=== PATIENT | female | born 1935 | race Caucasian/White ===

== ENCOUNTER → 2017-11-16 | Outpatient (CLI) | payer OTHER ==
[2017-11-16 10:31] LABS: Basophils # (auto) 0 uL; Basophils % (auto) 0.5 % (0.0-2.0); Eosinophils # (auto) 0.3 uL; Eosinophils % (auto) 4.1 % (0.0-7.0); Hematocrit 36.4 % (36.0-46.0); Hemoglobin 11.9 g/dL (12.2-16.2); Lymphocytes # (auto) 1.4 uL; Lymphocytes % (auto) 21.2 % (10.0-50.0); Mean Corpuscular Hemoglobin 29.6 pg (28.0-32.0); Mean Corpuscular Hgb Conc. 32.8 g/dL (32.0-36.0); Mean Corpuscular Volume 90.2 fL (80.0-100.0); Monocytes # (auto) 0.5 uL; Monocytes % (auto) 8.3 % (0.0-12.0); Neutrophils # (auto) 4.3 uL; Neutrophils % (auto) 65.9 % (37.0-80.0); Platelet Count (auto) 217 10^3/uL (140-450); Red Blood Cells 4.03 10^6/uL (4.0-5.20); Red Cell Distribution Width 15.9 % (11.8-14.3); White Blood Cell 6.5 10^3/uL (4.4-10.8)
[2017-11-16 10:53] LABS: Albumin 3.4 g/dL (3.4-5.0); BUN/Creatinine Ratio 13.7; Bilirubin, Total 0.7 mg/dL (0.2-1.0); Calcium 8.7 mg/dL (8.5-10.1); Potassium 4.1 mmol/L (3.5-5.1)
== END | disposition home or self-care (01) ==
LOC: LAB 10:10
PROVIDERS: ATTEND Internal Medicine
DX: I10 Essential (primary) hypertension (principal); E78.2 Mixed hyperlipidemia
CPT/HCPCS: 36415; 80053; 80061; 84443; 85025

== ENCOUNTER 2018-04-24 14:44 | Emergency (ER) | payer OTHER ==
[~2018-04-24] VITALS: Ht 165.1 cm; Wt 82.1 kg
[2018-04-24 15:20] VITALS: BP 160/84
== END 2018-04-24 18:58 | disposition home or self-care (01) ==
LOC: ER 14:44
DX: S30.0XXA Contusion of lower back and pelvis, initial encounter (principal); S40.012A Contusion of left shoulder, initial encounter; I48.91 Unspecified atrial fibrillation; M19.90 Unspecified osteoarthritis, unspecified site; E78.5 Hyperlipidemia, unspecified; I10 Essential (primary) hypertension; E07.9 Disorder of thyroid, unspecified; Z86.73 Personal history of transient ischemic attack (TIA), and cerebral infarction without residual deficits; W18.39XA Other fall on same level, initial encounter; Y93.89 Activity, other specified; Y99.8 Other external cause status; Y92.89 Other specified places as the place of occurrence of the external cause
CPT/HCPCS: 72131; 73200; 93005

== ENCOUNTER → 2018-05-16 | Outpatient (CLI) | payer OTHER ==
[2018-05-16 11:34] LABS: Basophils # (auto) 0 uL; Basophils % (auto) 0.5 % (0.0-2.0); Eosinophils # (auto) 0.3 uL; Eosinophils % (auto) 4.5 % (0.0-7.0); Hematocrit 41.5 % (36.0-46.0); Lymphocytes # (auto) 1.5 uL; Lymphocytes % (auto) 22.5 % (10.0-50.0); Mean Corpuscular Hgb Conc. 33.7 g/dL (32.0-36.0); Mean Corpuscular Volume 89.1 fL (80.0-100.0); Monocytes # (auto) 0.5 uL; Monocytes % (auto) 7.8 % (0.0-12.0); Neutrophils # (auto) 4.2 uL; Neutrophils % (auto) 64.7 % (37.0-80.0); Platelet Count (auto) 209 10^3/uL (140-450); Red Blood Cells 4.66 10^6/uL (4.0-5.20); Red Cell Distribution Width 14.9 % (11.8-14.3); White Blood Cell 6.5 10^3/uL (4.4-10.8)
== END | disposition home or self-care (01) ==
LOC: LAB 11:10
PROVIDERS: ATTEND Internal Medicine
DX: I10 Essential (primary) hypertension (principal); E03.9 Hypothyroidism, unspecified
CPT/HCPCS: 36415; 84443; 85025

== ENCOUNTER → 2018-06-29 | Outpatient (CLI) | payer OTHER | END | disposition home or self-care (01) | LOC: XYW 11:10 | PROVIDERS: ATTEND Internal Medicine | DX: Z01.818 Encounter for other preprocedural examination (principal); I08.8 Other rheumatic multiple valve diseases; I10 Essential (primary) hypertension | CPT/HCPCS: 93306 ==

== ENCOUNTER → 2018-11-22 | Outpatient (CLI) | payer OTHER ==
[2018-11-22 11:34] LABS: BUN/Creatinine Ratio 16.7; Calcium 8.7 mg/dL (8.5-10.1); Potassium 3.7 mmol/L (3.5-5.1)
== END | disposition home or self-care (01) ==
LOC: LAB 11:03
PROVIDERS: ATTEND Internal Medicine
DX: E03.9 Hypothyroidism, unspecified (principal); E78.5 Hyperlipidemia, unspecified
CPT/HCPCS: 36415; 80048; 84443

== ENCOUNTER → 2019-01-18 | Outpatient (CLI) | payer OTHER | END | disposition home or self-care (01) | LOC: XYW 11:16 | PROVIDERS: ATTEND Internal Medicine Cardiovascular Disease | DX: I08.1 Rheumatic disorders of both mitral and tricuspid valves (principal); I27.21 Secondary pulmonary arterial hypertension | CPT/HCPCS: 93306 ==

== ENCOUNTER → 2019-02-15 | Outpatient (CLI) | payer OTHER | END | disposition home or self-care (01) | LOC: LAB 14:06 | PROVIDERS: ATTEND Internal Medicine | DX: E03.9 Hypothyroidism, unspecified (principal); I10 Essential (primary) hypertension | CPT/HCPCS: 36415; 83036 ==

== ENCOUNTER → 2019-04-26 | Outpatient (CLI) | payer OTHER ==
[~2019-04-26] VITALS: Ht 167.6 cm; Wt 80.3 kg
[~2019-04-26] MED LIST: ADENOSINE 67 MG in GIVE UN-DILUTED 0 ML IV STA; METOPROLOL TARTRATE 1MG/1ML-5ML VIAL IV ONE
--- NOTE | 2019-04-26 09:51 | NUR ---
Update Dr. Locke notified of pt's increased HR. 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 Pt is asymptomatic, placed on O2 nc at 2L/min. Denies taking her morning medications including her beta ethan. Stress test completed as requested per Dr. Locke, pt tolerated testing well. V.O. received for beta ethan IV and to monitor pt until HR is WNL. See eMar orders. Pt informed of POC. Will continue with orders and to monitor closely.
[2019-04-26 11:45] VITALS: BP 133/83
--- NOTE | 2019-04-26 11:45 | NUR ---
Update Pt. discharged home in stable condition. VS rechecked, see VS intervention. Pt denied any symptoms. ED precautions given for CP, SOB, dizziness, or any other symptom. Ambulated out of the ED with walker in no distress.
== END | disposition home or self-care (01) ==
LOC: XY 08:18
PROVIDERS: ATTEND Internal Medicine
DX: Z01.818 Encounter for other preprocedural examination (principal); I48.91 Unspecified atrial fibrillation
CPT/HCPCS: 78452; 93017; A9500; J0153

== ENCOUNTER → 2019-09-28 | Outpatient (CLI) | payer OTHER | END | disposition home or self-care (01) | LOC: LAB 10:37 | PROVIDERS: ATTEND Internal Medicine | DX: E03.9 Hypothyroidism, unspecified (principal) | CPT/HCPCS: 36415; 84443 ==

== ENCOUNTER → 2020-02-14 | Outpatient (CLI) | payer OTHER ==
[2020-02-14 11:51] LABS: Basophils # (auto) 0 10 ^3/uL (0-0.2); Basophils % (auto) 0.4 % (0.0-2.0); Eosinophils # (auto) 0.2 10 ^3/uL (0-0.8); Eosinophils % (auto) 2.4 % (0.0-7.0); Hematocrit 41.9 % (36.0-46.0); Hemoglobin 13.9 g/dL (12.2-16.2); Lymphocytes # (auto) 1.4 10 ^3/uL (0.4-5.4); Mean Corpuscular Hemoglobin 28.9 pg (28.0-32.0); Mean Corpuscular Hgb Conc. 33.1 g/dL (32.0-36.0); Mean Corpuscular Volume 87.4 fL (80.0-100.0); Monocytes # (auto) 0.7 10 ^3/uL (0-1.3); Monocytes % (auto) 8.6 % (0.0-12.0); Neutrophils # (auto) 5.5 10 ^3/uL (1.6-8.6); Neutrophils % (auto) 70.6 % (37.0-80.0); Nucleated Red Blood Cells % 0.1 %; Platelet Count (auto) 253 10^3/uL (140-450); Red Cell Distribution Width 15.9 % (11.8-14.3); White Blood Cell 7.8 10^3/uL (4.4-10.8)
[2020-02-14 12:20] LABS: Potassium 3.4 mmol/L (3.5-5.1)
[2020-02-14 12:45] LABS: Albumin 3.7 g/dL (3.4-5.0); BUN/Creatinine Ratio 21.8; Bilirubin, Total 0.7 mg/dL (0.2-1.0); Calcium 9.5 mg/dL (8.5-10.1); Total Protein 7.6 g/dL (6.4-8.2)
== END | disposition home or self-care (01) ==
LOC: LAB 11:19
PROVIDERS: ATTEND Internal Medicine
DX: Z00.00 Encounter for general adult medical examination without abnormal findings (principal); I10 Essential (primary) hypertension; E03.9 Hypothyroidism, unspecified
CPT/HCPCS: 36415; 80053; 80061; 84443; 85025

== ENCOUNTER → 2020-05-10 | Outpatient (CLI) | payer OTHER ==
[2020-05-10 11:48] LABS: BUN/Creatinine Ratio 23.3; Calcium 9.3 mg/dL (8.5-10.1); Potassium 3.6 mmol/L (3.5-5.1)
== END | disposition home or self-care (01) ==
LOC: LAB 11:14
PROVIDERS: ATTEND Internal Medicine
DX: E03.9 Hypothyroidism, unspecified (principal)
CPT/HCPCS: 36415; 80048; 84443

== ENCOUNTER → 2020-06-13 | Outpatient (CLI) | payer OTHER ==
[2020-06-13 10:27] LABS: Basophils # (auto) 0 10 ^3/uL (0-0.2); Basophils % (auto) 0.6 % (0.0-2.0); Eosinophils # (auto) 0.3 10 ^3/uL (0-0.8); Eosinophils % (auto) 3.7 % (0.0-7.0); Hematocrit 40.1 % (36.0-46.0); Hemoglobin 13.5 g/dL (12.2-16.2); Lymphocytes # (auto) 1.3 10 ^3/uL (0.4-5.4); Lymphocytes % (auto) 18.6 % (10.0-50.0); Mean Corpuscular Hgb Conc. 33.6 g/dL (32.0-36.0); Mean Corpuscular Volume 89.2 fL (80.0-100.0); Monocytes # (auto) 0.6 10 ^3/uL (0-1.3); Monocytes % (auto) 8.4 % (0.0-12.0); Neutrophils # (auto) 4.8 10 ^3/uL (1.6-8.6); Neutrophils % (auto) 68.7 % (37.0-80.0); Platelet Count (auto) 226 10^3/uL (140-450); Red Blood Cells 4.49 10^6/uL (4.0-5.20); Red Cell Distribution Width 14.9 % (11.8-14.3); White Blood Cell 6.9 10^3/uL (4.4-10.8)
[2020-06-13 10:40] LABS: INR 1.33 (0.9-1.15)
[2020-06-13 10:59] LABS: Urine Bacteria FEW /hpf (None Seen); Urine Blood 1+ /uL (Negative); Urine Hyaline Cast FEW /lpf (0 - 2); Urine Mucus FEW (None Seen); Urine Specific Gravity 1.018 (1.001-1.035); Urine WBC 4 /hpf (0 - 5)
[2020-06-13 11:37] LABS: Albumin 3.6 g/dL (3.4-5.0); Calcium 9.3 mg/dL (8.5-10.1); Potassium 3.5 mmol/L (3.5-5.1)
[2020-06-13 11:43] LABS: BUN/Creatinine Ratio 18.5; Bilirubin, Total 0.8 mg/dL (0.2-1.0); Total Protein 7.2 g/dL (6.4-8.2)
== END | disposition home or self-care (01) ==
LOC: LAB 10:07
PROVIDERS: ATTEND Internal Medicine
DX: Z01.818 Encounter for other preprocedural examination (principal); Z01.812 Encounter for preprocedural laboratory examination
CPT/HCPCS: 36415; 80053; 81001; 84443; 85025; 85610

== ENCOUNTER → 2020-06-28 | Outpatient (CLI) | payer OTHER ==
[2020-06-28 11:55] LABS: Basophils # (auto) 0 10 ^3/uL (0-0.2); Basophils % (auto) 0.5 % (0.0-2.0); Eosinophils # (auto) 0.3 10 ^3/uL (0-0.8); Eosinophils % (auto) 3.5 % (0.0-7.0); Hematocrit 39.4 % (36.0-46.0); Hemoglobin 13.3 g/dL (12.2-16.2); Lymphocytes # (auto) 1.2 10 ^3/uL (0.4-5.4); Lymphocytes % (auto) 16.2 % (10.0-50.0); Mean Corpuscular Hemoglobin 30.1 pg (28.0-32.0); Mean Corpuscular Hgb Conc. 33.7 g/dL (32.0-36.0); Mean Corpuscular Volume 89.4 fL (80.0-100.0); Monocytes # (auto) 0.6 10 ^3/uL (0-1.3); Monocytes % (auto) 7.8 % (0.0-12.0); Neutrophils # (auto) 5.3 10 ^3/uL (1.6-8.6); Platelet Count (auto) 206 10^3/uL (140-450); Red Blood Cells 4.41 10^6/uL (4.0-5.20); White Blood Cell 7.3 10^3/uL (4.4-10.8)
[2020-06-28 12:10] LABS: Urine Blood 1+ /uL (Negative); Urine Specific Gravity 1.021 (1.001-1.035)
[2020-06-28 12:12] LABS: INR 1.24 (0.9-1.15); Partial Thromboplastin Time 33.2 sec (23.0-31.2)
[2020-06-28 12:19] LABS: Albumin 3.6 g/dL (3.4-5.0); Calcium 9.2 mg/dL (8.5-10.1); Potassium 3.6 mmol/L (3.5-5.1)
[2020-06-28 12:24] LABS: BUN/Creatinine Ratio 17.1; Bilirubin, Total 0.9 mg/dL (0.2-1.0); Total Protein 6.9 g/dL (6.4-8.2)
== END | disposition home or self-care (01) ==
LOC: LAB 11:38
PROVIDERS: ATTEND Specialist
DX: H25.12 Age-related nuclear cataract, left eye (principal); D68.318 Other hemorrhagic disorder due to intrinsic circulating anticoagulants, antibodies, or inhibitors; Z01.82 Encounter for allergy testing; Z79.01 Long term (current) use of anticoagulants
CPT/HCPCS: 36415; 80053; 81003; 85025; 85610; 85730

== ENCOUNTER → 2020-07-22 | Outpatient (CLI) | payer OTHER ==
[2020-07-22 12:12] LABS: Basophils # (auto) 0.1 10 ^3/uL (0-0.2); Basophils % (auto) 0.5 % (0.0-2.0); Eosinophils # (auto) 0.2 10 ^3/uL (0-0.8); Eosinophils % (auto) 2.3 % (0.0-7.0); Hematocrit 40.5 % (36.0-46.0); Hemoglobin 13.8 g/dL (12.2-16.2); Lymphocytes # (auto) 1.4 10 ^3/uL (0.4-5.4); Lymphocytes % (auto) 14.1 % (10.0-50.0); Mean Corpuscular Hemoglobin 30.5 pg (28.0-32.0); Mean Corpuscular Hgb Conc. 33.9 g/dL (32.0-36.0); Mean Corpuscular Volume 89.7 fL (80.0-100.0); Monocytes # (auto) 0.8 10 ^3/uL (0-1.3); Neutrophils # (auto) 7.6 10 ^3/uL (1.6-8.6); Neutrophils % (auto) 75.1 % (37.0-80.0); Nucleated Red Blood Cells % 0.1 %; Platelet Count (auto) 233 10^3/uL (140-450); Red Blood Cells 4.51 10^6/uL (4.0-5.20); Red Cell Distribution Width 14.9 % (11.8-14.3); White Blood Cell 10.2 10^3/uL (4.4-10.8)
[2020-07-22 12:48] LABS: Potassium 3.7 mmol/L (3.5-5.1)
[2020-07-22 12:50] LABS: Urine Blood Negative /uL (Negative); Urine Specific Gravity 1.024 (1.001-1.035)
[2020-07-22 12:52] LABS: INR 1.06 (0.9-1.15); Partial Thromboplastin Time 27.9 sec (23.0-31.2)
[2020-07-22 13:06] LABS: Albumin 3.5 g/dL (3.4-5.0); BUN/Creatinine Ratio 15.2; Bilirubin, Total 0.9 mg/dL (0.2-1.0); Calcium 9.2 mg/dL (8.5-10.1); Total Protein 7.2 g/dL (6.4-8.2)
== END | disposition home or self-care (01) ==
LOC: LAB 12:00
PROVIDERS: ATTEND Specialist
DX: Z01.812 Encounter for preprocedural laboratory examination (principal); D68.9 Coagulation defect, unspecified; H25.11 Age-related nuclear cataract, right eye; Z79.01 Long term (current) use of anticoagulants
CPT/HCPCS: 36415; 80053; 81003; 85025; 85610; 85730

== ENCOUNTER → 2020-08-09 | Outpatient (CLI) | payer OTHER ==
[2020-08-09 12:05] LABS: Potassium 3.4 mmol/L (3.5-5.1)
== END | disposition home or self-care (01) ==
LOC: LAB 10:47
PROVIDERS: ATTEND Internal Medicine
DX: I10 Essential (primary) hypertension (principal)
CPT/HCPCS: 36415; 80048

== ENCOUNTER → 2020-09-10 | Outpatient (CLI) | payer OTHER ==
[2020-09-10 15:28] LABS: BUN/Creatinine Ratio 16.7; Calcium 9.1 mg/dL (8.5-10.1); Potassium 3.5 mmol/L (3.5-5.1)
== END | disposition home or self-care (01) ==
LOC: LAB 14:45
PROVIDERS: ATTEND Internal Medicine
DX: I10 Essential (primary) hypertension (principal)
CPT/HCPCS: 36415; 80048

== ENCOUNTER → 2021-09-25 | Outpatient (CLI) | payer OTHER ==
[2021-09-25 12:08] LABS: Basophils # (auto) 0.1 10 ^3/uL (0-0.2); Basophils % (auto) 0.7 % (0.0-2.0); Eosinophils # (auto) 0.3 10 ^3/uL (0-0.8); Eosinophils % (auto) 4.4 % (0.0-7.0); Hematocrit 39.3 % (36.0-46.0); Hemoglobin 13.3 g/dL (12.2-16.2); Lymphocytes # (auto) 1.3 10 ^3/uL (0.4-5.4); Lymphocytes % (auto) 17.7 % (10.0-50.0); Mean Corpuscular Hemoglobin 30.3 pg (28.0-32.0); Mean Corpuscular Hgb Conc. 33.8 g/dL (32.0-36.0); Mean Corpuscular Volume 89.7 fL (80.0-100.0); Monocytes # (auto) 0.6 10 ^3/uL (0-1.3); Neutrophils # (auto) 5.1 10 ^3/uL (1.6-8.6); Neutrophils % (auto) 69.2 % (37.0-80.0); Nucleated Red Blood Cells % 0.1 %; Red Blood Cells 4.38 10^6/uL (4.0-5.20); Red Cell Distribution Width 13.9 % (11.8-14.3); White Blood Cell 7.4 10^3/uL (4.4-10.8)
[2021-09-25 12:42] LABS: Albumin 3.7 g/dL (3.4-5.0); Calcium 9.8 mg/dL (8.5-10.1); Potassium 3.7 mmol/L (3.5-5.1)
[2021-09-25 12:48] LABS: BUN/Creatinine Ratio 15.2; Bilirubin, Total 0.7 mg/dL (0.2-1.0); Total Protein 7.3 g/dL (6.4-8.2)
== END | disposition home or self-care (01) ==
LOC: LAB 09:36
PROVIDERS: ATTEND Internal Medicine
DX: C50.912 Malignant neoplasm of unspecified site of left female breast (principal); I10 Essential (primary) hypertension; E78.5 Hyperlipidemia, unspecified; I48.91 Unspecified atrial fibrillation
CPT/HCPCS: 36415; 80053; 80061; 83615; 85025; 86300

== ENCOUNTER → 2021-09-30 | Outpatient (CLI) | payer OTHER | END | disposition home or self-care (01) | LOC: XYW 09:59 | PROVIDERS: ATTEND Internal Medicine | DX: I08.3 Combined rheumatic disorders of mitral, aortic and tricuspid valves (principal) | CPT/HCPCS: 93306 ==

== ENCOUNTER → 2021-11-05 | Outpatient (CLI) | payer OTHER | END | disposition home or self-care (01) | LOC: XYW 08:33 | PROVIDERS: ATTEND Internal Medicine | DX: C50.912 Malignant neoplasm of unspecified site of left female breast (principal) | CPT/HCPCS: 78306; A9503 ==

== ENCOUNTER → 2022-03-25 | Outpatient (CLI) | payer OTHER ==
[2022-03-25 13:08] LABS: Basophils # (auto) 0.1 10 ^3/uL (0-0.2); Basophils % (auto) 0.6 % (0.0-2.0); Eosinophils # (auto) 0.4 10 ^3/uL (0-0.8); Eosinophils % (auto) 4.2 % (0.0-7.0); Hematocrit 39.3 % (36.0-46.0); Lymphocytes # (auto) 1.5 10 ^3/uL (0.4-5.4); Mean Corpuscular Hemoglobin 29.7 pg (28.0-32.0); Mean Corpuscular Hgb Conc. 33.2 g/dL (32.0-36.0); Mean Corpuscular Volume 89.5 fL (80.0-100.0); Monocytes # (auto) 0.8 10 ^3/uL (0-1.3); Monocytes % (auto) 8.7 % (0.0-12.0); Neutrophils # (auto) 6.4 10 ^3/uL (1.6-8.6); Neutrophils % (auto) 70.5 % (37.0-80.0); Red Blood Cells 4.38 10^6/uL (4.0-5.20); Red Cell Distribution Width 13.9 % (11.8-14.3); White Blood Cell 9.1 10^3/uL (4.4-10.8)
[2022-03-25 13:25] LABS: Albumin 3.6 g/dL (3.4-5.0); BUN/Creatinine Ratio 17.1; Potassium 3.5 mmol/L (3.5-5.1)
[2022-03-25 13:28] LABS: Bilirubin, Total 0.7 mg/dL (0.2-1.0); Total Protein 7.3 g/dL (6.4-8.2)
[2022-03-25 13:32] LABS: Urine Bacteria MANY /hpf (None Seen); Urine Blood 2+ /uL (Negative); Urine Mucus FEW (None Seen); Urine WBC 133 /hpf (0 - 5)
[2022-03-25 13:50] LABS: Thyroid Stimulating Hormone 2.3 uIU/mL (0.358-3.74)
== END | disposition home or self-care (01) ==
LOC: LAB 12:39
PROVIDERS: ATTEND Internal Medicine
DX: C50.912 Malignant neoplasm of unspecified site of left female breast (principal); D68.69 Other thrombophilia; I27.20 Pulmonary hypertension, unspecified
CPT/HCPCS: 36415; 80053; 81001; 83615; 84443; 85025; 86300

== ENCOUNTER → 2022-11-10 | Outpatient (CLI) | payer OTHER ==
[2022-11-10 13:23] LABS: Basophils # (auto) 0.1 10 ^3/uL (0-0.2); Basophils % (auto) 0.6 % (0.0-2.0); Eosinophils # (auto) 0.2 10 ^3/uL (0-0.8); Eosinophils % (auto) 1.9 % (0.0-7.0); Hematocrit 38.8 % (36.0-46.0); Hemoglobin 13.3 g/dL (12.2-16.2); Lymphocytes # (auto) 1.8 10 ^3/uL (0.4-5.4); Lymphocytes % (auto) 16.6 % (10.0-50.0); Mean Corpuscular Hemoglobin 30.6 pg (28.0-32.0); Mean Corpuscular Hgb Conc. 34.2 g/dL (32.0-36.0); Mean Corpuscular Volume 89.4 fL (80.0-100.0); Monocytes % (auto) 9.4 % (0.0-12.0); Neutrophils # (auto) 7.6 10 ^3/uL (1.6-8.6); Neutrophils % (auto) 71.5 % (37.0-80.0); Nucleated Red Blood Cells % 0.1 %; Red Blood Cells 4.35 10^6/uL (4.0-5.20); Red Cell Distribution Width 14.7 % (11.8-14.3); White Blood Cell 10.6 10^3/uL (4.4-10.8)
[2022-11-10 13:56] LABS: Albumin 3.8 g/dL (3.4-5.0); Calcium 9.6 mg/dL (8.5-10.1)
[2022-11-10 13:57] LABS: Urine Bacteria NONE SEEN /hpf (None Seen); Urine Blood 1+ /uL (Negative); Urine Mucus FEW (None Seen); Urine Specific Gravity 1.025 (1.001-1.035); Urine WBC 115 /hpf (0 - 5)
[2022-11-10 14:01] LABS: BUN/Creatinine Ratio 15.5; Bilirubin, Total 0.9 mg/dL (0.2-1.0); Total Protein 7.4 g/dL (6.4-8.2)
== END | disposition home or self-care (01) ==
LOC: LAB 13:01
PROVIDERS: ATTEND Internal Medicine
DX: Z00.00 Encounter for general adult medical examination without abnormal findings (principal); C50.912 Malignant neoplasm of unspecified site of left female breast; I10 Essential (primary) hypertension; I48.91 Unspecified atrial fibrillation
CPT/HCPCS: 36415; 80053; 80061; 81001; 84443; 85025

== ENCOUNTER 2022-12-30 09:43 | Inpatient (IN) | payer OTHER ==
[2022-12-25 12:07] LABS: Basophils # (auto) 0 10 ^3/uL (0-0.2); Basophils % (auto) 0.5 % (0.0-2.0); Eosinophils # (auto) 0.2 10 ^3/uL (0-0.8); Eosinophils % (auto) 1.9 % (0.0-7.0); Hematocrit 39.7 % (36.0-46.0); Hemoglobin 13.3 g/dL (12.2-16.2); Lymphocytes # (auto) 1.6 10 ^3/uL (0.4-5.4); Lymphocytes % (auto) 15.9 % (10.0-50.0); Mean Corpuscular Hemoglobin 30.1 pg (28.0-32.0); Mean Corpuscular Hgb Conc. 33.4 g/dL (32.0-36.0); Monocytes # (auto) 0.8 10 ^3/uL (0-1.3); Neutrophils # (auto) 7.3 10 ^3/uL (1.6-8.6); Neutrophils % (auto) 73.7 % (37.0-80.0); Nucleated Red Blood Cells % 0.1 %; Red Blood Cells 4.41 10^6/uL (4.0-5.20); Red Cell Distribution Width 14.9 % (11.8-14.3)
[2022-12-25 12:25] LABS: Albumin 3.6 g/dL (3.4-5.0); Calcium 9.9 mg/dL (8.5-10.1); Potassium 4.2 mmol/L (3.5-5.1)
[2022-12-25 12:30] LABS: Bilirubin, Total 0.8 mg/dL (0.2-1.0); Total Protein 7.3 g/dL (6.4-8.2)
[2022-12-25 12:34] LABS: INR 1.08 (0.9-1.15); Partial Thromboplastin Time 30.6 sec (24.6-33.4)
[2022-12-25 12:51] LABS: Urine Bacteria FEW /hpf (None Seen); Urine Blood Negative /uL (Negative); Urine Mucus FEW (None Seen); Urine Specific Gravity 1.033 (1.001-1.035); Urine WBC 7 /hpf (0 - 5)
[~2022-12-30] VITALS: Ht 162.6 cm; Wt 90.4 kg
[~2022-12-30 09:43] MED LIST changes: -ADENOSINE 67 MG in GIVE UN-DILUTED 0 ML IV STA; +ANAS1TAB7 PO; +APIX2.5T PO; +ATOR10TA PO; +LEVO88TA4 PO; +METO25TA5 PO; -METOPROLOL TARTRATE 1MG/1ML-5ML VIAL IV ONE; +TRAZ100T3 PO; +TRIA75TA55 PO
[2022-12-30] MEDS ORDERED: ceFAZolin 1GM/50ML 100 ML IV ONE (12:41)
[2022-12-30] MEDS ORDERED: LIDOCAINE W/ EPINEPHRINE 1% 20ML VIAL ONE (12:41)
[2022-12-30] MEDS ORDERED: BUPIVACAINE 0.25% INJ 50ML VIAL ONE (12:41)
[2022-12-30] MEDS ORDERED: METHYLENE BLUE 0.5% 5MG/ML 10ml AMP IV ONE (12:41)
[2022-12-30] MEDS ORDERED: fentaNYL CITRATE 100 MCG/2 ML VL ONE (13:23)
[2022-12-30] MEDS ORDERED: MEPERIDINE HCL (25 MG/ML) 1ML VIAL ONE (13:23)
[2022-12-30] MEDS ORDERED: MIDAZOLAM HCL 2MG/2ML 2ml VIAL (1mg/ml) ONE (13:23)
[2022-12-30] MEDS ORDERED: MORPHINE SULFATE 4 MG/ML SYR/VIAL IV PRN (13:45)
[2022-12-30] MEDS ORDERED: ONDANSETRON HCL 4 MG/2 ML VIAL IV PRN ×2 (13:45→17:15)
[2022-12-30] MEDS ORDERED: ePHEDrine SULFATE 50 MG/ML AMP IV PRN (13:45)
[2022-12-30] MEDS ORDERED: LABETALOL HCL 5 MG/ML 4ML SYRINGE IV PRN (13:45)
[2022-12-30] MEDS ORDERED: MIDAZOLAM HCL 2MG/2ML 2ml VIAL (1mg/ml) IV PRN (13:45)
[2022-12-30] MEDS ORDERED: HYDROmorphone HCL 2 MG/ML VL/or syr IV PRN ×2 (13:45→16:45)
[2022-12-30] MEDS ORDERED: ETOMIDATE (2MG/ML) 20ML VIAL IV ONE (14:20)
[2022-12-30] MEDS ORDERED: DexAMETHasone SOD PHOS 10MG/1ML VIAL INJ ONE (14:20)
[2022-12-30] MEDS ORDERED: ONDANSETRON HCL 4 MG/2 ML VIAL ONE (14:21)
[2022-12-30] MEDS ORDERED: MORPHINE SULFATE INJ 2 MG/ml SYRG IV PRN ×2 (16:30→17:15)
[2022-12-30] MEDS ORDERED: NITROGLYCERIN 0.4 MG SL TAB SL PRN ×2 (16:30→17:15)
[2022-12-30] MEDS ORDERED: dilTIAZem 25 MG/5 ML VIAL IV PRN (17:15)
[2022-12-30] MEDS ORDERED: DOCUSATE SOD 100 MG CAP PO PRN (17:15)
[2022-12-30] MEDS ORDERED: ACETAMINOPHEN 500 MG TAB PO PRN (17:15)
[2022-12-30] MEDS ORDERED: METOPROLOL TARTRATE 1MG/1ML-5ML VIAL IV ONE ×2 (17:15→17:17)
[2022-12-30] MEDS ORDERED: dilTIAZem 25 MG/5 ML VIAL IV ONE ×2 (17:15→17:24)
[2022-12-30] MEDS ORDERED: HYDROcodone-ACET 5/325MG TAB PO PRN (17:15)
[2022-12-30] MEDS ORDERED: METOPROLOL TARTRATE 25 MG TAB PO ONE (17:30)
[2022-12-30] MEDS ORDERED: HYDROcodone-ACET 5/325MG TAB PO ONE (17:50)
[2022-12-30 22:00] VITALS: BP 143/76
[2022-12-30] MEDS: METOPROLOL TARTRATE 25 MG TAB PO SCH (22:20)
[2022-12-30] MEDS: ceFAZolin 1GM/50ML 50 ML IV SCH (22:20)
[2022-12-31 03:25] VITALS: BP 171/80
[2022-12-31] MEDS ORDERED: hydrALAZINE HCL 20 MG/ML VL IV ONE (04:15)
[2022-12-31] MEDS: SOD CHL 0.45% WITH 20MEQ KCL 1,000 ML IV SCH ×2 (04:53→06:05)
[2022-12-31 05:00] VITALS: BP 135/106
[2022-12-31] MEDS: ceFAZolin 1GM/50ML 50 ML IV SCH ×2 (05:24→14:00)
[2022-12-31] MEDS ORDERED: LEVOTHYROXINE SODIUM 88 MCG TAB PO SCH (07:00)
[2022-12-31 08:14] VITALS: BP 113/75
[2022-12-31 09:28] LABS: BUN/Creatinine Ratio 21.1 (10.0-20.0); Calcium 9.6 mg/dL (8.5-10.1); Magnesium 2.3 mg/dL (1.6-2.6); Potassium 4.3 mmol/L (3.5-5.1)
[2022-12-31] MEDS ORDERED: DIGOXIN (250MCG/ML) 2 ML AMPULE IV ONE (09:45)
[2022-12-31] MEDS ORDERED: ASPirin 81 mg TAB PO SCH (10:00)
[2022-12-31] MEDS ORDERED: ATORVASTATIN 20 MG TAB PO SCH (10:00)
[2022-12-31] MEDS: traZODone HCL 50 MG TAB PO SCH ×2 (10:00→18:00)
[2022-12-31] MEDS ORDERED: Anastrozole 1 MG PO SCH (10:00)
[2022-12-31] MEDS: METOPROLOL TARTRATE 25 MG TAB PO SCH (10:13)
[2022-12-31] MEDS: dilTIAZem HCL 60 MG TAB PO SCH ×2 (12:44→14:00)
[2022-12-31 13:00] VITALS: BP 107/74
[2022-12-31] MEDS ORDERED: HYDR-4902 PO (13:32)
[2022-12-31 14:52] VITALS: BP 113/75
[2022-12-31 17:00] VITALS: BP 157/64
[2022-12-31] MEDS ORDERED: APIXABAN 2.5 MG TAB PO SCH (22:00)
[2022-12-31] MEDS ORDERED: METOPROLOL TARTRATE 25 MG TAB PO SCH (22:00)
[2023-01-01] MEDS ORDERED: DIGOXIN 0.125 MG TAB PO SCH (10:00)
== END 2022-12-31 19:35 | disposition home or self-care (01) | DRG 582 ==
LOC: SUR 09:43 → CENTRAL 16:24 → TELE-CENTR 12-31 09:32
PROVIDERS: ADMIT Surgery; ATTEND Nurse Practitioner Acute Care
PROC: BH01ZZZ Plain Radiography of Left Breast (ICD-10-PCS; 2022-12-30)
PROC: 0HBU0ZZ Excision of Left Breast, Open Approach (ICD-10-PCS; principal; 2022-12-30 13:55)
DX: C50.912 Malignant neoplasm of unspecified site of left female breast (principal); I48.20 Chronic atrial fibrillation, unspecified; N39.0 Urinary tract infection, site not specified; E03.9 Hypothyroidism, unspecified; E66.9 Obesity, unspecified; E78.5 Hyperlipidemia, unspecified; I10 Essential (primary) hypertension; Z79.899 Other long term (current) drug therapy; Z90.710 Acquired absence of both cervix and uterus; Z82.49 Family history of ischemic heart disease and other diseases of the circulatory system; Z80.0 Family history of malignant neoplasm of digestive organs; Z68.34 Body mass index [BMI] 34.0-34.9, adult; Z85.3 Personal history of malignant neoplasm of breast
CPT/HCPCS: 36415; 78195; 80048; 80053; 81001; 83735; 83880; 84443; 85025; 85610; 85730; 97110; 97116; 97163; 97530; G0378; J0690; J1100; J2250; J2405; J3490

== ENCOUNTER → 2023-05-05 | Outpatient (CLI) | payer OTHER ==
[~2023-05-05] MED LIST changes: +HYDR-4902 PO; +TRAZ-228 PO; -TRAZ100T3 PO
[2023-05-05 11:26] LABS: Basophils # (auto) 0 10 ^3/uL (0-0.2); Basophils % (auto) 0.5 % (0.0-2.0); Eosinophils # (auto) 0.3 10 ^3/uL (0-0.8); Eosinophils % (auto) 3.1 % (0.0-7.0); Hematocrit 40.7 % (36.0-46.0); Hemoglobin 13.3 g/dL (12.2-16.2); Lymphocytes # (auto) 1.7 10 ^3/uL (0.4-5.4); Lymphocytes % (auto) 20.8 % (10.0-50.0); Mean Corpuscular Hemoglobin 29.7 pg (28.0-32.0); Mean Corpuscular Hgb Conc. 32.7 g/dL (32.0-36.0); Mean Corpuscular Volume 90.6 fL (80.0-100.0); Monocytes # (auto) 0.8 10 ^3/uL (0-1.3); Monocytes % (auto) 9.1 % (0.0-12.0); Neutrophils # (auto) 5.6 10 ^3/uL (1.6-8.6); Neutrophils % (auto) 66.5 % (37.0-80.0); Red Blood Cells 4.49 10^6/uL (4.0-5.20); Red Cell Distribution Width 15.4 % (11.8-14.3); White Blood Cell 8.4 10^3/uL (4.4-10.8)
[2023-05-05 13:21] LABS: Alanine Aminotransferase 16 U/L (7-40); Albumin 4.1 g/dL (3.2-4.8); Alkaline Phosphatase 81 U/L (46-116); Anion Gap 6.3 (5-15); Aspartate Aminotransferase 14 U/L (13-40); BUN/Creatinine Ratio 12.8 (10.0-20.0); Bilirubin, Total 0.8 mg/dL (0.2-1.0); Blood Urea Nitrogen 10 mg/dL (9-23); Calcium 9.6 mg/dL (8.5-10.1); Carbon Dioxide 23.7 mmol/L (20-30); Chloride 112 mmol/L (98-107); Glucose 101 mg/dL (74-106); Potassium 4.1 mmol/L (3.5-5.1); Sodium 142 mmol/L (136-145); Total Protein 6.8 g/dL (5.7-8.2)
[2023-05-05 13:38] LABS: Thyroid Stimulating Hormone 1.22 uIU/mL (0.55-4.78)
== END | disposition home or self-care (01) ==
LOC: LAB 10:42
PROVIDERS: ATTEND Internal Medicine
DX: C50.912 Malignant neoplasm of unspecified site of left female breast (principal)
CPT/HCPCS: 36415; 80053; 83615; 84443; 85025; 86300

== ENCOUNTER → 2023-08-03 | Outpatient (CLI) | payer OTHER ==
[2023-08-03 11:02] LABS: Basophils # (auto) 0 10 ^3/uL (0-0.2); Basophils % (auto) 0.4 % (0.0-2.0); Eosinophils # (auto) 0.5 10 ^3/uL (0-0.8); Eosinophils % (auto) 5.6 % (0.0-7.0); Hematocrit 37.7 % (36.0-46.0); Hemoglobin 12.4 g/dL (12.2-16.2); Lymphocytes # (auto) 1.2 10 ^3/uL (0.4-5.4); Lymphocytes % (auto) 13.7 % (10.0-50.0); Mean Corpuscular Hemoglobin 29.2 pg (28.0-32.0); Mean Corpuscular Hgb Conc. 32.9 g/dL (32.0-36.0); Mean Corpuscular Volume 88.6 fL (80.0-100.0); Monocytes # (auto) 0.8 10 ^3/uL (0-1.3); Neutrophils # (auto) 6.4 10 ^3/uL (1.6-8.6); Neutrophils % (auto) 71.3 % (37.0-80.0); Red Blood Cells 4.25 10^6/uL (4.0-5.20); Red Cell Distribution Width 14.1 % (11.8-14.3); White Blood Cell 8.9 10^3/uL (4.4-10.8)
[2023-08-03 12:10] LABS: Alanine Aminotransferase 11 U/L (7-40); Albumin 4.1 g/dL (3.2-4.8); Alkaline Phosphatase 81 U/L (46-116); Anion Gap 9 (5-15); Aspartate Aminotransferase 15 U/L (13-40); BUN/Creatinine Ratio 8.9 (10.0-20.0); Blood Urea Nitrogen 8 mg/dL (9-23); Calcium 9.7 mg/dL (8.5-10.1); Carbon Dioxide 23 mmol/L (20-30); Chloride 109 mmol/L (98-107); Glucose 103 mg/dL (74-106); Potassium 4.1 mmol/L (3.5-5.1); Sodium 141 mmol/L (136-145)
[2023-08-03 12:11] LABS: Bilirubin, Total 0.8 mg/dL (0.2-1.0); Total Protein 7.1 g/dL (5.7-8.2)
== END | disposition home or self-care (01) ==
LOC: LAB 10:45
PROVIDERS: ATTEND Internal Medicine
DX: C50.912 Malignant neoplasm of unspecified site of left female breast (principal)
CPT/HCPCS: 36415; 80053; 83615; 85025; 86300

== ENCOUNTER → 2024-01-03 | Outpatient (CLI) | payer OTHER ==
[2024-01-03 12:32] LABS: Basophils # (auto) 0 10 ^3/uL (0-0.2); Basophils % (auto) 0.5 % (0.0-2.0); Eosinophils # (auto) 0.2 10 ^3/uL (0-0.8); Eosinophils % (auto) 2.9 % (0.0-7.0); Hematocrit 39.7 % (36.0-46.0); Hemoglobin 13.4 g/dL (12.2-16.2); Lymphocytes # (auto) 1.5 10 ^3/uL (0.4-5.4); Lymphocytes % (auto) 18.8 % (10.0-50.0); Mean Corpuscular Hemoglobin 29.9 pg (28.0-32.0); Mean Corpuscular Hgb Conc. 33.7 g/dL (32.0-36.0); Mean Corpuscular Volume 88.9 fL (80.0-100.0); Monocytes # (auto) 0.8 10 ^3/uL (0-1.3); Monocytes % (auto) 9.3 % (0.0-12.0); Neutrophils # (auto) 5.6 10 ^3/uL (1.6-8.6); Neutrophils % (auto) 68.5 % (37.0-80.0); Nucleated Red Blood Cells % 0.1 %; Red Blood Cells 4.47 10^6/uL (4.0-5.20); Red Cell Distribution Width 15.4 % (11.8-14.3); White Blood Cell 8.2 10^3/uL (4.4-10.8)
[2024-01-03 12:54] LABS: Alanine Aminotransferase 13 U/L (7-40); Albumin 4.2 g/dL (3.2-4.8); Alkaline Phosphatase 82 U/L (46-116); Anion Gap 8 (5-15); Aspartate Aminotransferase 21 U/L (13-40); Blood Urea Nitrogen 12 mg/dL (9-23); Calcium 9.9 mg/dL (8.5-10.1); Carbon Dioxide 24 mmol/L (20-30); Chloride 110 mmol/L (98-107); Cholesterol 120 mg/dL (< 200); Glucose 98 mg/dL (74-106); HDL Cholesterol 63 mg/dL (40-59); LDL Cholesterol 34 mg/dL (< 100); Potassium 4.2 mmol/L (3.5-5.1); Sodium 142 mmol/L (136-145); Triglycerides 71 mg/dL (< 150)
== END | disposition home or self-care (01) ==
LOC: LAB 11:59
PROVIDERS: ATTEND Internal Medicine
DX: C50.912 Malignant neoplasm of unspecified site of left female breast (principal); E78.5 Hyperlipidemia, unspecified; E03.9 Hypothyroidism, unspecified
CPT/HCPCS: 36415; 80053; 80061; 84443; 85025; 86300

== ENCOUNTER → 2024-08-24 | Outpatient (CLI) | payer OTHER ==
[2024-08-24 10:44] LABS: Basophils # (auto) 0.1 10 ^3/uL (0-0.2); Basophils % (auto) 0.7 % (0.0-2.0); Eosinophils # (auto) 0.2 10 ^3/uL (0-0.8); Eosinophils % (auto) 2.7 % (0.0-7.0); Hematocrit 40.2 % (36.0-46.0); Hemoglobin 13.4 g/dL (12.2-16.2); Lymphocytes # (auto) 1.7 10 ^3/uL (0.4-5.4); Mean Corpuscular Hemoglobin 30.2 pg (28.0-32.0); Mean Corpuscular Hgb Conc. 33.2 g/dL (32.0-36.0); Mean Corpuscular Volume 90.9 fL (80.0-100.0); Monocytes # (auto) 0.6 10 ^3/uL (0-1.3); Neutrophils # (auto) 6.2 10 ^3/uL (1.6-8.6); Neutrophils % (auto) 70.6 % (37.0-80.0); Nucleated Red Blood Cells % 0.1 %; Platelet Count (auto) 268 10^3/uL (140-450); Red Blood Cells 4.43 10^6/uL (4.0-5.20); Red Cell Distribution Width 14.1 % (11.8-14.3); White Blood Cell 8.7 10^3/uL (4.4-10.8)
[2024-08-24 11:15] LABS: Alanine Aminotransferase 11 U/L (7-40); Albumin 4.2 g/dL (3.2-4.8); Alkaline Phosphatase 84 U/L (46-116); Anion Gap 7 (5-15); Aspartate Aminotransferase 15 U/L (13-40); BUN/Creatinine Ratio 12.5 (10.0-20.0); Bilirubin, Total 0.7 mg/dL (0.2-1.0); Blood Urea Nitrogen 11 mg/dL (9-23); Calcium 10.4 mg/dL (8.7-10.4); Carbon Dioxide 26 mmol/L (20-31); Glucose 100 mg/dL (74-106); Potassium 4.2 mmol/L (3.5-5.1); Sodium 142 mmol/L (136-145)
[2024-08-24 11:16] LABS: Thyroid Stimulating Hormone 3.11 uIU/mL (0.55-4.78)
[2024-08-24 11:24] LABS: Chloride 109 mmol/L (98-107)
== END | disposition home or self-care (01) ==
LOC: LAB 10:15
PROVIDERS: ATTEND Internal Medicine
DX: I12.9 Hypertensive chronic kidney disease with stage 1 through stage 4 chronic kidney disease, or unspecified chronic kidney disease (principal); N18.2 Chronic kidney disease, stage 2 (mild); C50.912 Malignant neoplasm of unspecified site of left female breast; Z79.899 Other long term (current) drug therapy
CPT/HCPCS: 36415; 80053; 82306; 82607; 83615; 84443; 85025; 86300

== ENCOUNTER 2025-01-12 16:30 | Inpatient (IN) | payer OTHER ==
[~2025-01-12] VITALS: Ht 165.1 cm; Wt 82.0 kg
--- NOTE | 2025-01-12 16:43 | ED.PDOC ---
History of Present Illness HPI Comments 89F BIBA w/ prior MHx of HTN, left Sided Breast Cancer, Arthritis, Skin Cancer, High Lipids, Thyroid, TIA, CHF, AFIB; SHx of Cataract Sx, Hysterectomy and the c/c of a mechanical fall x1 month ago. Pt reports on falling 1 month ago, and called EMS to check on her, and she stated that she did not feel pain at the time so she did not get checked by a physician. Pt reports on currently having left sided groin pain, and back pain w/ no LOC or hitting the head. Pt notes that she currently is on blood thinners. Social Hx of occasional alcohol use, but denies tobacco and substance use. Denies chills, fever, N/V/D, SOB, CP or other associated symptom's, modifiers, or recent injuries or sick contact at this time. Time Seen by MD: 16:35 Primary Care Provider: Dr Forrest Reviewed Notes: Nurses Notes, [employer] Notes, Medications, Allergies Allergies: Coded Allergies: NO KNOWN ALLERGIES (Unverified , 04/24/18) Home Meds Active Scripts Hydrocodone-Acetaminophen (Hydrocodone Bitartrate/AC 5-325 mg) 1 Tab Tab, 1 TAB PO Q6HP PRN for 5 Days, #20 TAB Prov:ROBERTO FOX SEWER PIPE CLEANER 12/31/22 Reported Medications Trazodone Hcl (Trazodone Hcl) 100 Mg Tab, 50 MG PO QPM, TAB 12/25/22 Levothyroxine Sodium (Levothyroxine Sodium) 88 Mcg Tab, 88 MCG PO DAILY, TAB 12/25/22 Anastrozole (Anastrozole) 1 Mg Tab, 1 MG PO DAILY, TAB 12/25/22 Apixaban Base (ELIQUIS) 2.5 Mg Tab, 2.5 MG PO BID, TAB 12/25/22 Atorvastatin Calcium (Lipitor) 10 Mg Tab, 10 MG PO DAILY, TAB 12/25/22 Metoprolol Tartrate (Metoprolol Tartrate) 25 Mg Tab, 25 MG PO BID, TAB 12/25/22 Triamterene & Hydrochlorothiaz (Maxzide) 1 Tab Tab, 1 TAB PO, TAB 12/25/22 Information Source: Patient, Emergency Med Personnel Mode of Arrival: EMS Severity: Moderate Timing: Weeks Duration: Since onset Prehospital treatment: None Quality Sharp left groin pain Past Medical History PAST MEDICAL HISTORY: AFIB, Arthritis, Cancer (Skin/breast), CHF, High Lipids, HTN, Thyroid, TIA Surgical History: Hysterectomy Surgical History (Other): cataract Sx BUILDING CODE ADMINISTRATOR History: No Pertinent BUILDING CODE ADMINISTRATOR History Family History Family History: Reviewed,noncontributory to illness, Family hx of Cancer (Colon), Family hx of heart zaki Social History Smoker: Non-Smoker Alcohol: Occasionally Drugs: Denies Drug Use Lives In: Home Constitutional: denies: chills, diaphoresis, fatigue, fever, malaise, sweats, weakness, others EENTM: denies: blurred vision, double vision, ear bleeding, ear discharge, ear drainage, ear pain, ear ringing, eye pain, eye redness, hearing loss, mouth pain, mouth swelling, nasal discharge, nose bleeding, nose congestion, nose pain, photophobia, tearing, throat pain, throat swelling, voice changes, others Respiratory: denies: cough, hemoptysis, orthopnea, SOB at rest, shortness of breath, SOB with excertion, stridor, wheezing, others Cardiovascular: denies: chest pain, dizzy spells, diaphoresis, Dyspnea on exertion, edema, irregular heart beat, left arm pain, lightheadedness, palpitations, PND, syncope, others Gastrointestinal: denies: abdomen distended, abdominal pain, blood streaked bowels, constipated, diarrhea, dysphagia, difficulty swallowing, hematemesis, melena, nausea, poor appetite, poor fluid intake, rectal bleeding, rectal pain, vomiting, others Genitourinary: denies: abnormal vagina bleeding, burning, dyspareunia, dysuria, flank pain, frequency, hematuria, incontinence, pain, , vagina discharg e, urgency, others Neurological: denies: dizziness, fainting, headache, left sided numbness, left sided weakness, numbness, paresthesia, pre-existing deficit, right sided numbness, right sided weakness, seizure, speech problems, tingling, tremors, weakness, others Musculoskeletal: reports: back pain, others (Hip Pain); denies: gout, joint pain, joint swelling, muscle pain, muscle stiffness, neck pain Integumetry: denies: bruises, change in color, change in hair/nails, dryness, laceration, lesions, lumps, rash, wounds, others Allergic/Immunocompromised: denies: Difficulty Healing, Frequent Infections, Hives, Itching, others Hematologic/Lymphatic: denies: anemia, blood clots, easy bleeding, easy bruising, swollen glands, others Endocrine: denies: excessive hunger, excessive sweating, excessive thirst, excessive urination, flushing, intolerance to cold, intolerance to heat, unexplained weight gain, unexplained weight loss, others Psychiatric: denies: anxiety, bipolar disorder, depression, hopeless, panic disorder, schizophrenia, sleepless, suicidal, others All Other Systems: Reviewed and Negative Physical Exam General Appearance: Moderate Distress HEENT: Normal ENT Inspection, Pharynx Normal, TMs Normal Neck: Full Range of Motion, Non-Tender, Normal, Normal Inspection Respiratory: Chest Non-Tender, Lungs Clear, No Accessory Muscle Use, No Respiratory Distress, Normal Breath Sounds Cardiovascular: No Edema, No JVD, No Murmur, No Gallop, Normal Peripheral Pulses, Regular Rate/Rhythm Breast Exam: Deferred Gastrointestinal: LLQ, No Organomegaly, No Pulsatile Mass, Normal Bowel Sounds, Soft, Tenderness Genitalia: Deferred Pelvic: Deferred Rectal: Deferred Extremities: No calf tenderness, Normal capillary refill, Normal inspection, Normal range of motion, Non-tender, No pedal edema Musculoskeletal : Apperance: Normal Neurologic: Alert, director case management II-XII nml as Tested, No Motor Deficits, Normal Affect, Normal Mood, No Sensory Deficits Cerebellar Function: Normal Reflexes: Normal Skin: Dry, Normal Color, Warm Lymphatic: No Adenopathy Was a procedure done? Was a procedure done?: No Differential Dx Considerations may include: Fracture, gastritis, diverticulitis, UTI X-Ray, Labs, Meds, VS Vital Signs Date Time Temp Pulse Resp B/P (MAP) Pulse Ox O2 Delivery O2 Flow Rate FiO2 01/12/25 16:48 98.3 100 16 162/80 (107) 95 98.3 Lab Test 01/12/25 16:59 Range/Units White Blood Count 10.2 4.4-10.8 10^3/uL Red Blood Count 4.59 4.0-5.20 10^6/uL Hemoglobin 13.9 12.2-16.2 g/dL Hematocrit 40.5 36.0-46.0 % Mean Corpuscular Volume 88.2 80.0-100.0 fL Mean Corpuscular Hemoglobin 30.3 28.0-32.0 pg Mean Corpuscular Hemoglobin Concent 34.4 32.0-36.0 g/dL Red Cell Distribution Width 15.4 H 11.8-14.3 % Platelet Count 227 140-450 10^3/uL Mean Platelet Volume 7.7 6.9-10.8 fL Neutrophils (%) (Auto) 74.1 37.0-80.0 % Lymphocytes (%) (Auto) 15.3 10.0-50.0 % Monocytes (%) (Auto) 8.2 0.0-12.0 % Eosinophils (%) (Auto) 1.8 0.0-7.0 % Basophils (%) (Auto) 0.6 0.0-2.0 % Neutrophils # (Auto) 7.6 1.6-8.6 10 ^3/uL Lymphocytes # (Auto) 1.6 0.4-5.4 10 ^3/uL Monocytes # (Auto) 0.8 0-1.3 10 ^3/uL Eosinophils # (Auto) 0.2 0-0.8 10 ^3/uL Basophils # (Auto) 0.1 0-0.2 10 ^3/uL Nucleated Red Blood Cells 0.0 % Sodium Level 146 H 136-145 mmol/L Potassium Level 3.1 L 3.5-5.1 mmol/L Chloride Level 111 H 98-107 mmol/L Carbon Dioxide Level 23 20-31 mmol/L Anion Gap 12 5-15 Blood Urea Nitrogen 15 9-23 mg/dL Creatinine 0.89 0.550-1.02 mg/dL Glomerular Filtration Rate Calc 62 >90 mL/min BUN/Creatinine Ratio 16.9 10.0-20.0 Serum Glucose 112 H 74-106 mg/dL Calcium Level 10.8 H 8.7-10.4 mg/dL IMPRESSION: No acute displaced fractures. [id number]-[id number] degenerative changes of the left hip with moderate to severe degenerative changes of the right hip. If symptoms persist, consider MRI for further evaluation. Mild Sigmoid diverticulitis Partially imaged right renal cyst. At this time, the patient is being admitted to the hospitalist The CBC and chemistry panel are within normal limits The patient's potassium is low at three point At this time the patient is being admitted We are giving the patient potassium for the hypokalemia Time of 1ST Reevaluation: 17:05 Reevaluation 1ST: Unchanged Patient Education/Counseling: Diagnosis, Treatment, Prognosis Family Education/Counseling: No Family Present Departure 1 Departure Time of Disposition: 19:41 Impression: Primary Impression: Left hip pain Additional Impressions: Multiple falls Hypokalemia Disposition: ADMITTED INPATIENT Admit to: Med Surg Condition: Fair Critical Care Note Critical Care Time?: No Stability Stability form required: Yes Unstable for transfer: ED Physician Assesment (Clinical assesment) Heart Score Heart Score: Heart Score Response (Comments) Value History N/A 0 EKG N/A 0 Age N/A 0 Risk Factors N/A 0 Troponin N/A 0 Total 0 I personally scribed for DAWOOD MO MD ([email or web address]) on 01/12/25 at 16:43. Electronically submitted by Axel Schwartz ([employer] I personally scribed for DAWOOD MO MD ([email or web address]) on 01/12/25 at 17:54. Electronically submitted by Aexl Schwartz ([employer] DAWOOD MO MD January 12, 2025 16:43
[2025-01-12 17:17] LABS: Basophils # (auto) 0.1 10 ^3/uL (0-0.2); Basophils % (auto) 0.6 % (0.0-2.0); Eosinophils # (auto) 0.2 10 ^3/uL (0-0.8); Eosinophils % (auto) 1.8 % (0.0-7.0); Hematocrit 40.5 % (36.0-46.0); Hemoglobin 13.9 g/dL (12.2-16.2); Lymphocytes # (auto) 1.6 10 ^3/uL (0.4-5.4); Lymphocytes % (auto) 15.3 % (10.0-50.0); Mean Corpuscular Hemoglobin 30.3 pg (28.0-32.0); Mean Corpuscular Hgb Conc. 34.4 g/dL (32.0-36.0); Mean Corpuscular Volume 88.2 fL (80.0-100.0); Monocytes # (auto) 0.8 10 ^3/uL (0-1.3); Monocytes % (auto) 8.2 % (0.0-12.0); Neutrophils # (auto) 7.6 10 ^3/uL (1.6-8.6); Neutrophils % (auto) 74.1 % (37.0-80.0); Platelet Count (auto) 227 10^3/uL (140-450); Red Blood Cells 4.59 10^6/uL (4.0-5.20); Red Cell Distribution Width 15.4 % (11.8-14.3); White Blood Cell 10.2 10^3/uL (4.4-10.8)
[2025-01-12 17:31] LABS: Anion Gap 12 (5-15); Carbon Dioxide 23 mmol/L (20-31)
[2025-01-12 17:36] LABS: BUN/Creatinine Ratio 16.9 (10.0-20.0); Blood Urea Nitrogen 15 mg/dL (9-23)
[2025-01-12 17:41] LABS: Calcium 10.8 mg/dL (8.7-10.4); Chloride 111 mmol/L (98-107); Glucose 112 mg/dL (74-106); Potassium 3.1 mmol/L (3.5-5.1); Sodium 146 mmol/L (136-145)
--- NOTE | 2025-01-12 17:48 | DVH ---
Exam: CT PELVIS WO CONTRAST History: left hip pain Comparison Study: None TECHNIQUE: Multidetector CT of the pelvis without IV contrast. Axial, coronal and sagittal multiplana r reformats were obtained from the axial data set by the technologist. Radiation Dose Information: CT Dose: CTDI volume is 26.94 mGy. Dose-length product is 878.96 mGy*cm FINDINGS: Diffuse demineralization. No evidence of acute fractures or dislocations. Moderate to severe degenera tive changes of the right hip with [id number] degenerative changes of the left hip. Compression fracture of L5 with about 50% loss of superior vertebral body height and 7 mm retropulsio n into the spinal canal without significant spinal canal stenosis. Nmoa-ji-dybepxjo bilateral neural foramina stenosis at L4-L5 with mild left-sided neural foramina stenosis at L5-S1. 7.2 cm partially imaged right renal cyst. Metallic densities with Streak artifact within the pelvis. Sigmoid diverticulosis with mild adjacent fat stranding. Small fat containing umbilical hernia. Limited evaluation of the urinary bladder due to inadequate di stention. IMPRESSION: No acute displaced fractures. [id number] degenerative changes of the left hip with moderate to severe degenerative changes of the right hip. If symptoms persist, consider MRI for further evaluatio n. Mild Sigmoid diverticulitis Partially imaged right renal cyst.
[2025-01-12] MEDS ORDERED: HYDROcodone-ACET 5/325MG TAB PO PRN (23:00)
[2025-01-12] MEDS ORDERED: NITROGLYCERIN 0.4 MG SL TAB SL PRN (23:00)
[2025-01-12] MEDS ORDERED: DOCUSATE SOD 100 MG CAP PO PRN (23:00)
--- NOTE | 2025-01-12 23:21 | DVHHP2 ---
History of Present Illness History of Present Illness Patient is 89 years old female with a past medical history of hypertension, left breast carcinoma on anastrozole, arthritis, skin carcinoma, hyperlipidemia, thyroid disease, TIA, CHF, atrial fibrillation on Eliquis came with a complaint of fall. As per patient she had a fall 1 month before but did not seek any medical attention. As per patient she had pain or 10/10 at the time but did not seek any medical attention. Patient walks with a walker. Patient reported she is feeling pain today in the left groin and radiating to the back, 7/10, increa sed with movement. Patient denied any dysuria, constipation or diarrhea, acute joint pain or swelling chest pain or shortness breast. Initial lab workup revealed sodium 146, potassium 3.1, CT abdominal pelvis-No acute displaced fractures. [id number] degenerative changes of the left hip with moderate to severe degenerative changes of the right hip. If symptoms persist, consider MRI for further evaluation.Mild Sigmoid diverticulitis. Partially imaged right renal cyst. Past Medical History hypertension, left breast carcinoma on anastrozole, arthritis, skin carcinoma, hyperlipidemia, thyroid disease, TIA, CHF, atrial fibrillation on Eliquis Past Surgical History Cataract surgery, hysterectomy Past Social History Lives with daughter, denies smoking/alcoholism or drug abuse Home meds Eliquis 2.5 mg b.i.d., metoprolol 25 mg b.i.d., levofloxacin the 18 mg Q g daily, trazodone 50 mg daily, anastrozole 1 mg daily, atorvastatin 10 mg q.h.s. Review of Systems Review of Systems Patient was seen today at the bedside. Cardiovascular- deny acute chest pain or shortness of breath or cough or palpitation Respiratory denies cough or short of breath or wheezing Gastrointestinal- denies any rectal bleeding, nausea or vomiting Musculoskeletal-denies acute joint swelling or tenderness or redness Neurological- denies acute dysarthria, dysphagia, change in vision Psychiatry- denies depression or SI or HI Skin- denies acute rash or purpura Allergies: Coded Allergies: NO KNOWN ALLERGIES (Unverified , 04/24/18) Medications Current Medications Medications Dose Ordered Sig/Christie Route Start Time Stop Time Status Last Admin Dose Admin Sodium Chloride 10 ml Q8HR IV 01/13/25 06:00 Acetaminophen/ Hydrocodone Bitart 1 tab Q4HP PRN PO 01/12/25 23:00 Docusate Sodium 100 mg BIDPRN PRN PO 01/12/25 23:00 Acetaminophen 650 mg Q6HP PRN PO 01/12/25 23:00 Nitroglycerin 0.4 mg Q5MINP PRN SL 01/12/25 23:00 Morphine Sulfate 2 mg Q30M PRN IV 01/12/25 23:00 Exam Vital Signs Vital Signs Date Time Temp Pulse Resp B/P (MAP) Pulse Ox O2 Delivery O2 Flow Rate FiO2 01/12/25 22:06 98.0 98 16 172/89 (116) 92 98.0 Exam General examination- , alert, oriented HEENT- PEERLA, no acute nasal discharge Cardiovascular- S1-S2 audible, rate and rhythm regular, systolic murmur+ Respiratory- CTAB, no wheeze or rhonchi Gastrointestinal-nontender, bowel sound+. Nondistended Musculoskeletal-no acute joint swelling or tenderness or redness Lower extremity- bilateral lower extremity varicose vein++ Neurological- cranial nerves intact, no acute dysarthria or dysphagia Psychiatry- denies depression or SI or HI Skin- no acute rash or purpura Labs/Xrays Labs Test 01/12/25 16:59 Range/Units White Blood Count 10.2 4.4-10.8 10^3/uL Red Blood Count 4.59 4.0-5.20 10^6/uL Hemoglobin 13.9 12.2-16.2 g/dL Hematocrit 40.5 36.0-46.0 % Mean Corpuscular Volume 88.2 80.0-100.0 fL Mean Corpuscular Hemoglobin 30.3 28.0-32.0 pg Mean Corpuscular Hemoglobin Concent 34.4 32.0-36.0 g/dL Red Cell Distribution Width 15.4 H 11.8-14.3 % Platelet Count 227 140-450 10^3/uL Mean Platelet Volume 7.7 6.9-10.8 fL Neutrophils (%) (Auto) 74.1 37.0-80.0 % Lymphocytes (%) (Auto) 15.3 10.0-50.0 % Monocytes (%) (Auto) 8.2 0.0-12.0 % Eosinophils (%) (Auto) 1.8 0.0-7.0 % Basophils (%) (Auto) 0.6 0.0-2.0 % Neutrophils # (Auto) 7.6 1.6-8.6 10 ^3/uL Lymphocytes # (Auto) 1.6 0.4-5.4 10 ^3/uL Monocytes # (Auto) 0.8 0-1.3 10 ^3/uL Eosinophils # (Auto) 0.2 0-0.8 10 ^3/uL Basophils # (Auto) 0.1 0-0.2 10 ^3/uL Nucleated Red Blood Cells 0.0 % Sodium Level 146 H 136-145 mmol/L Potassium Level 3.1 L 3.5-5.1 mmol/L Chloride Level 111 H 98-107 mmol/L Carbon Dioxide Level 23 20-31 mmol/L Anion Gap 12 5-15 Blood Urea Nitrogen 15 9-23 mg/dL Creatinine 0.89 0.550-1.02 mg/dL Glomerular Filtration Rate Calc 62 >90 mL/min BUN/Creatinine Ratio 16.9 10.0-20.0 Serum Glucose 112 H 74-106 mg/dL Calcium Level 10.8 H 8.7-10.4 mg/dL Assessment/Plan Assessment/Plan Assessment and plan Status post fall, rule out acute fracture Left groin pain radiating to back, rule out UTI Hypokalemia Hyponatremia mild likely due to dehydration hypertension, hyperlipidemia, thyroid disease, TIA, CHF acute exacerbation atrial fibrillation on Eliquis left breast carcinoma on anastrozole, Degenerative change of the hip joint Right renal cyst Mild sigmoid diverticulitis arthritis, skin carcinoma, CT abdominal pelvis-No acute displaced fractures. [id number]-eo-[id number] degenerative changes of the left hip with moderate to severe degenerative changes of the right hip. If symptoms persist, consider MRI for further evaluation.Mild Sigmoid diverticulitis. Partially imaged right renal cyst. Plan Continue Geary as prescribed Eliquis 2.5 mg p.o. b.i.d. Atorvastatin 10 mg p.o. daily Metoprolol 25 mg p.o. b.i.d. Trazodone 50 mg p.o. q.h.s. Levothyroxine 80 mcg p.o. q.a.m. Anastrozole 1 mg as prescribed PCP-Dr. Forrest Goals of care, Code status ; discussed with >15 minutes PUD prophylaxis: Pantoprazole DVT prophylaxis: Eliquis Plan discussed with Dr. Andrade , nursing staff, Total time spent on patient evaluation, chart review, assessment and plan, discussion discussion >35 minutes Plan discussed with: Patient, Other (RN) My Orders Orders - OLGA LIDIA EPPERSON Procedure Category Date Status Time Admit ADMIT 01/12/25 Transmitted 22:57 Code Status CODE 01/12/25 Transmitted 22:57 Sodium Chloride Lock PHA 01/13/25 In Process (Saline Lock Ns) 06:00 Hydrocodone-Acet PHA 01/12/25 In Process 5/325mg Tab (Geary 23:00 Docusate Sodium PHA 01/12/25 In Process Capsule (Colace 23:00 Acetaminophen Tablet PHA 01/12/25 In Process (Tylenol Tablet) 23:00 Nitroglycerin PHA 01/12/25 In Process Sublingual (Ntrostat 23:00 Morphine Sulfate PHA 01/12/25 In Process Injection 23:00 Oxygen By Nasal RT 01/12/25 Transmitted Cannula 22:57 Stat Ekg For Chest ALISSA 01/12/25 In Process Pain 22:57 Notify Md Of Changes ALISSA 01/12/25 In Process From Base 22:57 Classified Ad Taker For ALISSA 01/12/25 In Process 24 Hours 22:57 Emergency Dysrhythmia ALISSA 01/12/25 In Process Protocol 22:57 Rhythm Strips Once ALISSA 01/12/25 In Process Every Shift 22:57 Date of Service: January 12, 2025 Billing Provider: KETAN ANDRADE MD Common Visit Codes: 98637-CBKSLGQ INP/OBS CARE (HIGH) Secondary Visit Codes: 74422-[id number] CARE PLAN 30 MINUTES OLGA LIDIA EPPERSON January 12, 2025 23:21
[2025-01-13] VITALS (10 sets, daily range): BP systolic 133–184; BP diastolic 63–99; PULSE 86–106; RESP 16–18; TEMP 96.2–98.1; O2SAT 92–100
[2025-01-13] MEDS: HYDROcodone-ACET 5/325MG TAB PO PRN (00:14)
[2025-01-13] MEDS: D5W/SOD CHLO 0.9% 1,000 ML IV SCH (00:15)
[2025-01-13] MEDS: POTASSIUM EFFERVESENT TAB 25 MEQ GT ONE (00:16)
[2025-01-13] MEDS: PANTOPRAZOLE 40 MG/10 ML VIAL INJ IV ONE (00:18)
[2025-01-13] MEDS: hydrALAZINE HCL 20 MG/ML VL IV ONE (01:40)
[2025-01-13] MEDS: ACETAMINOPHEN 325 MG TAB PO PRN (03:33)
[2025-01-13] MEDS: SODIUM CHLOR 0.9% PF (SALINE LOCK) 10ML VIAL/SYR IV SCH ×2 (06:17→21:47)
[2025-01-13] MEDS: LEVOTHYROXINE SODIUM 88 MCG TAB PO SCH (06:24)
[2025-01-13] MEDS: ATORVASTATIN 20 MG TAB PO SCH (08:54)
[2025-01-13] MEDS: PANTOPRAZOLE 40 MG/10 ML VIAL INJ IV SCH (08:54)
[2025-01-13] MEDS: APIXABAN 2.5 MG TAB PO SCH (08:55)
[2025-01-13] MEDS: METOPROLOL TARTRATE 25 MG TAB PO SCH (09:00)
--- NOTE | 2025-01-13 09:42 | DVH ---
EXAM: XR Left Hip With Pelvis When Performed, 1 View CLINICAL INDICATION: fall TECHNIQUE: Frontal view of the left hip with pelvis when performed. COMPARISON: None FINDINGS: BONES/JOINTS: Unremarkable. No acute fracture. No dislocation. SOFT TISSUES: Unremarkable. OTHER FINDINGS: . IMPRESSION: No acute findings in the left hip.
[2025-01-13] MEDS ORDERED: Anastrozole 1 MG PO SCH (10:00)
[2025-01-13 11:34] LABS: Alanine Aminotransferase 10 U/L (7-40); Albumin 3.9 g/dL (3.2-4.8); Alkaline Phosphatase 86 U/L (46-116); Anion Gap 12 (5-15); Aspartate Aminotransferase 16 U/L (13-40); BUN/Creatinine Ratio 19.1 (10.0-20.0); Bilirubin, Total 0.8 mg/dL (0.2-1.0); Blood Urea Nitrogen 13 mg/dL (9-23); Calcium 10.1 mg/dL (8.7-10.4); Carbon Dioxide 23 mmol/L (20-31); Sodium 145 mmol/L (136-145); Total Protein 6.4 g/dL (5.7-8.2)
[2025-01-13 11:46] LABS: Chloride 110 mmol/L (98-107); Glucose 126 mg/dL (74-106); Potassium 3.3 mmol/L (3.5-5.1)
[2025-01-13] MEDS ORDERED: AMOXICILLIN/CLAVUL 875 MG TAB PO SCH (14:15)
--- NOTE | 2025-01-13 14:50 | DVHPNRES ---
Progress Note Date Seen: January 13, 2025 Resident Creating Document: TERESITA SAWYER RESIDENT Medical Necessity Reason Pt with a Central, PICC or Fol: No Subjective Review of Systems Patient is 89 years old female with a past medical history of hypertension, left breast carcinoma on anastrozole, arthritis, skin carcinoma, hyperlipidemia, thyroid disease, TIA, CHF, atrial fibrillation on Eliquis came with a complaint of fall. As per patient she had a fall 1 month before but did not seek any medical attention. As per patient she had pain or 10/10 at the time but did not seek any medical attention. Patient walks with a walker. Patient reported she is feeling pain today in the left groin and radiating to the back, 7/10, increased with movement. Patient denied any dysuria, constipation or diarrhea, acute joint pain or swelling chest pain or shortness breast. Initial lab workup revealed sodium 146, potassium 3.1, CT abdominal pelvis-No acute displaced fractures. [id number] degenerative changes of the left hip with moderate to severe degenerative changes of the right hip. If symptoms persist, consider MRI for further evaluation.Mild Sigmoid diverticulitis. Partially imaged right renal cyst. Past Medical History hypertension, left breast carcinoma on anastrozole, arthritis, skin carcinoma, hyperlipidemia, thyroid disease, TIA, CHF, atrial fibrillation on Eliquis Past Surgical History Cataract surgery, hysterectomy Past Social History Lives with daughter, denies smoking/alcoholism or drug abuse Home meds Eliquis 2.5 mg b.i.d., metoprolol 25 mg b.i.d., levofloxacin the 18 mg Q g daily, trazodone 50 mg daily, anastrozole 1 mg daily, atorvastatin 10 mg q.h.s. 01/13/25: Patient seen and examined at bedside. Complaining of right hip pain, mainly radiating to back pain. Plan for physical therapy evaluation today. CT scan of pelvis showed mild sigmoid diverticulitis, no abdominal pain, fever, chills, diarrhea at this point. No any other new complaints at this point. Objective vital signs Vital Sign Date Time Temp Pulse Resp B/P (MAP) Pulse Ox O2 Delivery O2 Flow Rate FiO2 01/13/25 09:00 97.5 100 16 165/87 (113) 92 97.5 01/13/25 08:00 Room Air* 0 21 Total Intake and Output 01/12/25 01/12/2525 15:00 23:00 07:00 Intake Total 0 ml Balance 0 ml medications Current Medications Medications Dose Ordered Sig/Christie Route Start Time Stop Time Status Last Admin Dose Admin Sodium Chloride 10 ml Q8HR IV 01/13/25 06:00 01/13/25 06:17 10 ML Docusate Sodium 100 mg BIDPRN PRN PO 01/12/25 23:00 Acetaminophen 650 mg Q6HP PRN PO 01/12/25 23:00 01/13/25 03:33 650 MG Nitroglycerin 0.4 mg Q5MINP PRN SL 01/12/25 23:00 Morphine Sulfate 2 mg Q30M PRN IV 01/12/25 23:00 Acetaminophen/ Hydrocodone Bitart 1 tab Q6HPRN PRN PO 01/13/25 00:15 01/13/25 00:14 1 TAB Apixaban 2.5 mg BID PO 01/13/25 10:00 01/13/25 08:55 2.5 MG Levothyroxine Sodium 88 mcg QAM PO 01/13/25 07:00 01/13/25 06:24 88 MCG Metoprolol Tartrate 25 mg BID PO 01/13/25 10:00 01/13/25 09:00 25 MG Trazodone HCl 50 mg HS PO 01/13/25 22:00 Atorvastatin Calcium 10 mg DAILY PO 01/13/25 10:00 01/13/25 08:54 10 MG Pantoprazole Sodium 40 mg DAILY IV 01/13/25 10:00 01/13/25 08:54 40 MG Dextrose/Sodium Chloride 1,000 ml @ 50 mls/hr Q20H IV 01/13/25 00:15 01/13/25 03:32 50 MLS/HR Hydralazine HCl 10 mg Q6HP PRN IV 01/13/25 00:30 Patient Own Medication 1 mg HS PO 01/13/25 22:00 Examination General Appearance: Cooperative. Well developed. Well nourished. NAD Head Exam: Normal inspection Neck Exam: Normal inspection. Non-tender. Normal alignment Pulmonary/Respiratory: Chest non-tender. Clear bilateral breath sounds Cardiovascular/Chest: Regular rate and rhythm. No murmurs. No JVD. Peripheral Pulses: 2+ Radial (R). 2+ Radial (L). 2+ Pedal (R). 2+ Pedal (L) Abdominal Exam: Normal bowel sounds. Soft. Nontender. No hepatospenomegaly. No masses Ankle Exam: Negative ankle edema Lower extremities: Negative lower extremity edema Neuro/Mental Status: A&O x4. Coherent Thoughts/Psych: Normal thought pattern. Appropriate mood and affect. Good judgement and insight Appearance: In no acute distress Skin Exam: Normal inspection. Normal color. Warm. 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 moderate tricuspid valve regurgitation. Pulmonary hypertension Plan / recommendation Hip x-ray: No acute findings in left hip Pelvic CT: No acute displaced fracture, [id number] of the left hip with moderate to severe degenerative changes of the right hip. If symptoms persist, consider MRI for further evaluation. Mild Sigmoid diverticulitis Partially imaged right renal cyst. -IV fluid D5W/NS 50 mL/hour -atrial fibrillation: Continue apixaban 2.5 mg p.o. b.i.d. metoprolol tartrate 25 mg p.o. b.i.d. -levothyroxine: TSH within normal limits, levothyroxine 80 mcg p.o. daily -history of TIA: Continue apixaban 2.5 mg p.o. b.i.d., atorvastatin 10 mg p.o. daily. -pain management: NSAIDs, naproxen. -physical therapy -mild diverticulitis: Amoxicillin clavulanic acid 875 mg p.o. t.i.d.. -PUD prophylaxis Protonix -DVT prophylaxis Eliquis Goals of care discussed greater than 24 minutes, full code status Plan discussed with Dr. Rizvi Plan discussed with: Patient, Other (rn) My Orders My Orders Orders - TERESITA SAWYER Procedure Category Date Status Time Pt Request For Service PT 5/10/25 Logged 11:45 Date of Service: January 13, 2025 Billing Provider: PHAN RIZVI MD Common Visit Codes: [id number] INP/OBS CARE(HIGH) TERESITA SAWYER RESIDENT January 13, 2025 14:50 PHAN RIZVI MD January 13, 2025 15:49
[2025-01-13] MEDS: AMOXICILLIN/CLAVUL 875 MG TAB PO SCH (17:21)
[2025-01-13] MEDS: hydrALAZINE HCL 20 MG/ML VL IV PRN (18:27)
[2025-01-13] MEDS ORDERED: MORPHINE SULFATE INJ 2 MG/ml SYRG IV PRN ×2 (20:45)
[2025-01-13] MEDS ORDERED: NITROGLYCERIN 0.4 MG SL TAB SL PRN ×2 (20:45)
[2025-01-13] MEDS: MORPHINE SULFATE INJ 2 MG/ml SYRG IV PRN (20:59)
[2025-01-13] MEDS: NAPROXEN 500 MG TAB PO SCH (21:44)
[2025-01-13] MEDS: traZODone HCL 50 MG TAB PO SCH (21:44)
[2025-01-13] MEDS: Anastrozole 1 MG PO SCH (22:00)
[2025-01-14] VITALS (13 sets, daily range): BP systolic 128–152; BP diastolic 59–75; PULSE 35–172; RESP 16–18; TEMP 97.1–98.2; O2SAT 94–96
[2025-01-14 06:10] LABS: Basophils # (auto) 0 10 ^3/uL (0-0.2); Basophils % (auto) 0.4 % (0.0-2.0); Eosinophils # (auto) 0.4 10 ^3/uL (0-0.8); Eosinophils % (auto) 5.2 % (0.0-7.0); Hemoglobin 13.2 g/dL (12.2-16.2); Lymphocytes # (auto) 1.4 10 ^3/uL (0.4-5.4); Lymphocytes % (auto) 18.2 % (10.0-50.0); Mean Corpuscular Hgb Conc. 33.7 g/dL (32.0-36.0); Monocytes # (auto) 0.7 10 ^3/uL (0-1.3); Monocytes % (auto) 9.6 % (0.0-12.0); Neutrophils # (auto) 4.9 10 ^3/uL (1.6-8.6); Neutrophils % (auto) 66.6 % (37.0-80.0); Nucleated Red Blood Cells % 0.1 %; Platelet Count (auto) 195 10^3/uL (140-450); Red Blood Cells 4.38 10^6/uL (4.0-5.20); Red Cell Distribution Width 15.8 % (11.8-14.3); White Blood Cell 7.4 10^3/uL (4.4-10.8)
[2025-01-14 06:18] LABS: Potassium 3.7 mmol/L (3.5-5.1); Sodium 142 mmol/L (136-145)
[2025-01-14 06:19] LABS: Anion Gap 8 (5-15); Calcium 9.6 mg/dL (8.7-10.4); Carbon Dioxide 26 mmol/L (20-31)
[2025-01-14 06:24] LABS: BUN/Creatinine Ratio 23.3 (10.0-20.0); Blood Urea Nitrogen 17 mg/dL (9-23); Chloride 108 mmol/L (98-107); Glucose 101 mg/dL (74-106)
--- NOTE | 2025-01-14 10:53 | DVHINCON2 ---
Date Seen: January 14, 2025 Referring Physician Meghna Reason for Consultation Atrial Fibrillation with RVR History of Present Illness 89-year-old female with PMH for paroxysmal atrial fibrillation on low-dose Eliquis, breast CA, HTN, HLD, TIA, HFpEF, mild aortic stenosis presents to the hospital with a left groin/hip pain Patient states she had a fall approximately 1 month ago though was mainly bed ridden did not go to the hospital or follow up with PCP though has been having increased pain. Patient states that she misstepped and fell using her walker, denies any lightheadedness, palpitations, shortness or breath, syncope. Upon presentation in the ER patient noted to have elevated heart rate, patient was in AFib with episode of RVR. Patient on metoprolol 25 mg p.o. twice daily. While on telemetry overnight patient noted to have episodes of tachy-víctor syndrome with heart rate and should not up to the 140s at times though having some SVR in the mid 50s with episodes of pauses with longest lasting around 2.5 seconds. Patient does endorse that she does get at times lightheaded though no episodes of syncope. Past Medical History Paroxysmal atrial fibrillation HTN HFpEF Breast CA TIA Mild Past Surgical History Denies previous cardiac surgeries Family History: Cardiovascular disease G8 MOTHER G8 FATHER FH: colon cancer G8 FATHER Social History Denies alcohol, tobacco, or illicit drug use Allergies: Coded Allergies: NO KNOWN ALLERGIES (Unverified , 04/24/18) Home Meds Active Scripts Hydrocodone-Acetaminophen (Hydrocodone Bitartrate/AC 5-325 mg) 1 Tab Tab, 1 TAB PO Q6HP PRN for 5 Days, #20 TAB Prov:ROBERTO FOX TRAFFIC I MANAGER 12/31/22 Reported Medications Trazodone Hcl (Trazodone Hcl) 100 Mg Tab, 50 MG PO QPM, TAB 12/25/22 Levothyroxine Sodium (Levothyroxine Sodium) 88 Mcg Tab, 88 MCG PO DAILY, TAB 12/25/22 Anastrozole (Anastrozole) 1 Mg Tab, 1 MG PO DAILY, TAB 12/25/22 Apixaban Base (ELIQUIS) 2.5 Mg Tab, 2.5 MG PO BID, TAB 12/25/22 Atorvastatin Calcium (Lipitor) 10 Mg Tab, 10 MG PO DAILY, TAB 12/25/22 Metoprolol Tartrate (Metoprolol Tartrate) 25 Mg Tab, 25 MG PO BID, TAB 12/25/22 Discontinued Reported Medications Triamterene & Hydrochlorothiaz (Maxzide) 1 Tab Tab, 1 TAB PO, TAB 12/25/22 Current Medications Current Medications Medications (Trade) Dose Ordered Sig/Christie Route PRN Reason Start Time Stop Time Status Last Admin Trazodone HCl (Desyrel) 50 mg HS PO 01/13/25 22:00 01/13/25 21:44 Patient Own Medication 1 mg HS PO 01/13/25 22:00 Amoxicillin/ Clavulanate Potassium (Augmentin Tablet) 875 mg Q8HR PO 01/13/25 14:15 01/13/25 16:00 DC Amoxicillin/ Clavulanate Potassium (Augmentin Tablet) 875 mg Q8H PO 01/13/25 16:00 01/14/25 09:11 Naproxen (Naprosyn Tablet) 250 mg BID PO 01/13/25 22:00 01/14/25 09:13 Nitroglycerin (Ntrostat Sublingual) 0.4 mg Q5MINP PRN SL FOR CHEST PAIN 01/13/25 20:45 Morphine Sulfate 2 mg Q30M PRN IV FOR CHEST PAIN 01/13/25 20:45 Sodium Chloride (Saline Lock Ns) 10 ml Q8HR IV 01/13/25 22:00 01/14/25 05:56 Nitroglycerin (Ntrostat Sublingual) 0.4 mg Q5MINP PRN SL FOR CHEST PAIN 01/13/25 20:45 Morphine Sulfate 2 mg Q30M PRN IV FOR CHEST PAIN 01/13/25 20:45 Review of Systems Constitutional: No: Fever, Chills, Sweats, Weakness, Malaise, Other Eyes: No: Pain, Vision change, Conjunctivae inflammation, Eyelid inflammation, Other, Redness ENT: No: Ear pain, Ear discharge, Nose pain, Nose discharge, Nose congestion, Mouth pain, Mouth swelling, Throat pain, Throat swelling, Other Respiratory: No: Cough, Dry, Shortness of breath, SOB with exertion, Wheezing, Hemoptysis, Pleuritic Pain, Sputum, Wheezing, Other Cardiovascular: ; No: Chest Pain , Orthopnea, Paroxysmal Noc. Dyspnea, Edema, Lt Headedness, Other positive: Palpitations Gastrointestinal: No: Nausea, Vomiting, Abdominal Pain, Diarrhea, Constipation, Melena, Hematochezia, Other Genitourinary: No Dysuria, No Frequency, No Incontinence, No Hematuria, No Retention, No Other Musculoskeletal: neck pain; No: other, shoulder pain, arm pain, back pain, hand pain, , foot pain positive: Hip/ leg pain Skin: No: Rash, Lesions, Jaundice, Bruising, Other Neurological: Other ( headache.); No: Weakness, Numbness, Incoordination, Masters ge in speech, Confusion, Seizures positive: Intermittent Dizziness, Vital Signs Vital Signs Date Time Temp Pulse Resp B/P (MAP) Pulse Ox O2 Delivery O2 Flow Rate FiO2 01/14/25 09:12 60 144/59 01/14/25 09:00 97.7 18 95 97.7 01/13/25 20:00 Room Air* 0 21 Physical Exam General appearance: Patient is well-developed, well-nourished, in no acute distress. HEENT: Exam shows: Normocephalic, atraumatic, PERRLA, EOMI Neck: Supple, no bruits Chest: Equal chest excursion bilaterally. Breath sounds diminished Heart: Rhythm: Irregular rhythm/rate; no murmur or gallop Abdomen: Exam shows: Soft, nontender, nondistended Musculoskeletal: No clubbing, no cyanosis, no lower extremity edema Dermatology: Skin warm, moist. Neurological: Exam shows: Alert and oriented x4, normal speech Available prior records, labs, EKG, rhythm strips reviewed and interpreted Labs/Diagnostic Data Labs Test 01/14/25 05:47 01/13/25 09:56 Range/Units White Blood Count 7.4 # 4.4-10.8 10^3/uL Red Blood Count 4.38 4.0-5.20 10^6/uL Hemoglobin 13.2 12.2-16.2 g/dL Hematocrit 39.0 36.0-46.0 % Mean Corpuscular Volume 89.0 80.0-100.0 fL Mean Corpuscular Hemoglobin 30.0 28.0-32.0 pg Mean Corpuscular Hemoglobin Concent 33.7 32.0-36.0 g/dL Red Cell Distribution Width 15.8 H 11.8-14.3 % Platelet Count 195 140-450 10^3/uL Mean Platelet Volume 7.7 6.9-10.8 fL Neutrophils (%) (Auto) 66.6 37.0-80.0 % Lymphocytes (%) (Auto) 18.2 10.0-50.0 % Monocytes (%) (Auto) 9.6 0.0-12.0 % Eosinophils (%) (Auto) 5.2 0.0-7.0 % Basophils (%) (Auto) 0.4 0.0-2.0 % Neutrophils # (Auto) 4.9 1.6-8.6 10 ^3/uL Lymphocytes # (Auto) 1.4 0.4-5.4 10 ^3/uL Monocytes # (Auto) 0.7 0-1.3 10 ^3/uL Eosinophils # (Auto) 0.4 0-0.8 10 ^3/uL Basophils # (Auto) 0 0-0.2 10 ^3/uL Nucleated Red Blood Cells 0.1 % Sodium Level 142 136-145 mmol/L Potassium Level 3.7 3.5-5.1 mmol/L Chloride Level 108 H 98-107 mmol/L Carbon Dioxide Level 26 20-31 mmol/L Anion Gap 8 5-15 Blood Urea Nitrogen 17 9-23 mg/dL Creatinine 0.73 0.550-1.02 mg/dL Glomerular Filtration Rate Calc 79 >90 mL/min BUN/Creatinine Ratio 23.3 H 10.0-20.0 Serum Glucose 101 74-106 mg/dL Calcium Level 9.6 8.7-10.4 mg/dL Hemoglobin A1c 5.4 <5.7 % A1C Total Bilirubin 0.8 0.2-1.0 mg/dL Aspartate Amino Transferase (AST) 16 13-40 U/L Alanine Aminotransferase (ALT) 10 7-40 U/L Alkaline Phosphatase 86 46-116 U/L Total Protein 6.4 5.7-8.2 g/dL Albumin 3.9 3.2-4.8 g/dL Thyroid Stimulating Hormone (TSH) 1.46 0.55-4.78 uIU/mL Assessment Paroxysmal atrial fibrillation with episode of RVR, SVR 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 Normal TSH. On metoprolol 25 mg p.o. twice daily. Patient having recurrent episodes of tachy-víctor syndrome with heart rate shooting up to the 140s RVR and also having episodes of bradycardia with intermittent pauses this a.m.. Plan of care discussed with patient, given having episodes of uncontrolled heart rate we will continue dose of metoprolol at this time though patient is recommended to undergo permanent pacemaker implantation. We will plan for Wednesday as patient had Eliquis this a.m., hold anticoagulation therapy for now. * Patient does not seem overloaded, breathing stable, continue monitoring fluid volume status. * Monitor and replace electrolytes, keep K> 4 and mg> [address] Lion. Due to recurrent episodes of tachy-víctor syndrome with AFib RVR and bradycardia with 2.5 pause, recommend patient to have ppm implantation. We will plan for Wednesday as patient on Eliquis with a.m. dose this morning given. Plan of care discussed with patient and is agreeable. Continue telemetry monitoring. Critical care, time spent: 40 minutes This medical document was created using an electronic medical record system with voice recognition software and computerized dictation system. Although this document has been carefully reviewed, there might still be some phonetic and typographical errors. Occasional wrong-word or ``sound-alike substitutions may have occurred due to the inherent limitations of voice recognition software. These areas are purely typographical due to imperfections of the software programs and do not reflect any compromise in the patient's medical care. Please read the chart carefully and recognize, using context, where these substitutions have occurred. Thank you for allowing me to participate in the management of this patient. The treatment plan was discussed with and agreed upon by patient/family including requesting consultants and ordering of imaging/procedures. Plan discussed with: Patient NYHA Physical activity limitations: Class2(Slight)fatigue,sob Date of Service: January 14, 2025 Billing Provider: IAM WARE Cardiology Common Codes: [id number] INP/OBS CARE (High), [id number] CARE 30-74 MIN IAM WARE January 14, 2025 10:53
--- NOTE | 2025-01-14 11:18 | ECG ---
[facility] Test Date: 2025-01-13 Test Time: 20:24:03 Pat Name: DARA NEFF Department: Respiratoy Room: 0219T Gender: F It Business Analyst: SAMPSON : 1935 Requested By: OLGA LIDIA EPPERSON Order Number: [id number] Reading MD: Jose Locke Measurements Intervals [place] Rate: 131 P: 128 ID: 60 QRS: -54 QRSD: 109 T: 131 QT: 337 QTc: 498 Interpretive Statements Sinus tachycardia Multiple premature complexes, vent & supraven Left anterior fascicular block LVH with secondary repolarization abnormality Anterior infarct, old Electronically Signed On 01-17-2025 11:57:13 PDT by Jose Locke Please click the below link to view image of tracing.
--- NOTE | 2025-01-14 11:18 | ECG ---
[facility] Test Date: 2025-01-13 Test Time: 20:26:02 Pat Name: DARA NEFF Department: Respiratoy Room: 0219T Gender: F Sifter Operator: SAMPSON : 1935 Requested By: LONDON OCHOA Order Number: [id number] Reading MD: Joes Locke Measurements Intervals [place] Rate: 95 P: 0 SD: 0 QRS: -56 QRSD: 111 T: 127 QT: 325 QTc: 409 Interpretive Statements Atrial fibrillation Left anterior fascicular block LVH with secondary repolarization abnormality Anterior infarct, old Electronically Signed On 01-17-2025 11:57:18 PDT by Jose Locke Please click the below link to view image of tracing.
--- NOTE | 2025-01-14 11:19 | ECG ---
[facility] Test Date: 2025-01-13 Test Time: 20:22:29 Pat Name: DARA NEFF Department: Respiratoy Room: 0219T Gender: F Supervisor [employer]: SAMPSON : 1935 Requested By: LONDON OCHOA Order Number: [id number] Reading MD: Jose oLcke Measurements Intervals [place] Rate: 147 P: 43 [place]: 108 QRS: -57 QRSD: 110 T: 139 QT: 308 QTc: 482 Interpretive Statements Supraventricular tachycardia LAD, consider left anterior fascicular block LVH with secondary repolarization abnormality Anterior infarct, acute (LAD) Electronically Signed On 01-17-2025 11:57:11 PDT by Jose Locke Please click the below link to view image of tracing.
--- NOTE | 2025-01-14 17:43 | DVHPNRES ---
Progress Note Date Seen: January 14, 2025 Resident Creating Document: BENJAMINMILAGROSYAYAJACK RESIDENT Medical Necessity Reason Pt with a Central, PICC or Fol: No Subjective Review of Systems Patient is 89 years old female with a past medical history of hypertension, left breast carcinoma on anastrozole, arthritis, skin carcinoma, hyperlipidemia, thyroid disease, TIA, CHF, atrial fibrillation on Eliquis came with a complaint of fall. As per patient she had a fall 1 month before but did not seek any medical attention. As per patient she had pain or 10/10 at the time but did not seek any medical attention. Patient walks with a walker. Patient reported she is feeling pain today in the left groin and radiating to the back, 7/10, increased with movement. Patient denied any dysuria, constipation or diarrhea, acute joint pain or swelling chest pain or shortness breast. Initial lab workup revealed sodium 146, potassium 3.1, CT abdominal pelvis-No acute displaced fractures. [id number] degenerative changes of the left hip with moderate to severe degenerative changes of the right hip. If symptoms persist, consider MRI for further evaluation.Mild Sigmoid diverticulitis. Partially imaged right renal cyst. Past Medical History hypertension, left breast carcinoma on anastrozole, arthritis, skin carcinoma, hyperlipidemia, thyroid disease, TIA, CHF, atrial fibrillation on Eliquis Past Surgical History Cataract surgery, hysterectomy Past Social History Lives with daughter, denies smoking/alcoholism or drug abuse Home meds Eliquis 2.5 mg b.i.d., metoprolol 25 mg b.i.d., trazodone 50 mg daily, anastrozole 1 mg daily, atorvastatin 10 mg q.h.s. 01/14/25 Patient seen and examined at bedside. Reports that the pain in the hip has improved Overnight patient had an episode of tachyarrhythmia following which ECG was done which showed supraventricular tachycardia likely atrial fibrillation and also she was noticed to have episodes of Weston cardia following which cardiology were consulted who recommended doing a permanent pacemaker implantation. But patient was given Eliquis in the morning and it was held and the procedure will be planned for Wednesday No other acute complaints Objective vital signs Vital Sign Date Time Temp Pulse Resp B/P (MAP) Pulse Ox O2 Delivery O2 Flow Rate FiO2 01/14/25 13:00 98.2 83 16 128/75 (92) 94 98.2 01/14/25 08:00 Room Air* 0 21 Total Intake and Output 01/13/25 01/13/25 01/14/25 15:00 23:00 07:00 Intake Total 480 ml 950 ml 100 ml Balance 480 ml 950 ml 100 ml medications Current Medications Medications Dose Ordered Sig/Christie Route Start Time Stop Time Status Last Admin Dose Admin Sodium Chloride 10 ml Q8HR IV 01/13/25 06:00 01/14/25 14:00 10 ML Acetaminophen 650 mg Q6HP PRN PO 01/12/25 23:00 01/13/25 03:33 650 MG Morphine Sulfate 2 mg Q30M PRN IV 01/12/25 23:00 01/13/25 20:59 2 MG Acetaminophen/ Hydrocodone Bitart 1 tab Q6HPRN PRN PO 01/13/25 00:15 01/13/25 18:28 1 TAB Levothyroxine Sodium 88 mcg QAM PO 01/13/25 07:00 01/14/25 05:55 88 MCG Metoprolol Tartrate 25 mg BID PO 01/13/25 10:00 01/14/25 09:12 25 MG Trazodone HCl 50 mg HS PO 01/13/25 22:00 01/13/25 21:44 50 MG Pantoprazole Sodium 40 mg DAILY IV 01/13/25 10:00 01/14/25 09:14 40 MG Dextrose/Sodium Chloride 1,000 ml @ 50 mls/hr Q20H IV 01/13/25 00:15 01/14/25 16:29 50 MLS/HR Amoxicillin/ Clavulanate Potassium 875 mg Q8H PO 01/13/25 16:00 01/14/25 16:28 875 MG Naproxen 250 mg BID PO 01/13/25 22:00 01/14/25 09:13 250 MG Sodium Chloride 10 ml Q8HR IV 01/13/25 22:00 01/14/25 14:00 10 ML Atorvastatin Calcium 40 mg HS PO 01/15/25 22:00 Examination General Appearance: Cooperative. Well developed. Well nourished. NAD Head Exam: Normal inspection Neck Exam: Normal inspection. Non-tender. Normal alignment Pulmonary/Respiratory: Chest non-tender. Clear bilateral breath sounds Cardiovascular/Chest: Regular rate and rhythm. No murmurs. No JVD. Peripheral Pulses: 2+ Radial (R). 2+ Radial (L). 2+ Pedal (R). 2+ Pedal (L) Abdominal Exam: Normal bowel sounds. Soft. Nontender. No hepatospenomegaly. No masses Ankle Exam: Negative ankle edema Lower extremities: Negative lower extremity edema Neuro/Mental Status: A&O x4. Coherent Thoughts/Psych: Normal thought pattern. Appropriate mood and affect. Good judgement and insight Appearance: In no acute distress Skin Exam: Normal inspection. Normal color. Warm. 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 moderate tricuspid valve regurgitation. Pulmonary hypertension Plan / recommendation Hip x-ray: No acute findings in left hip Pelvic CT: No acute displaced fracture, [id number] of the left hip with moderate to severe degenerative changes of the right hip. If symptoms persist, consider MRI for further evaluation. Mild Sigmoid diverticulitis Partially imaged right renal cyst. -IV fluid D5W/NS 50 mL/hour -atrial fibrillation with a RVR, tachybrady syndrome- Eliquis held and patient continued on metoprolol b.i.d. cardiology consulted and the patient is planned for Permanent pacemaker implantation on Wednesday -levothyroxine: TSH within normal limits, levothyroxine 88 mcg p.o. daily -history of TIA: Atorvastatin 40 mg daily -pain management: NSAIDs, naproxen. -physical therapy -mild diverticulitis: Amoxicillin clavulanic acid 875 mg p.o. t.i.d.. - full liquid diet -PUD prophylaxis Protonix -DVT prophylaxis Eliquis Goals of care discussed greater than 23 minutes, full code status Plan discussed with Dr. Oswald Julien discussed with: Patient My Orders My Orders Orders - CARLY JARRETT RESIDENT Procedure Category Date Status Time Atorvastatin (Lipitor) PHA 01/15/25 In Process 22:00 Date of Service: January 14, 2025 Billing Provider: PHAN RIZVI MD Common Visit Codes: [id number] INP/OBS CARE(HIGH) CARLY JARRETT RESIDENT January 14, 2025 17:43 PHAN RIZVI MD January 15, 2025 14:19
--- NOTE | 2025-01-14 22:36 | DVHINCON2 ---
Date Seen: January 14, 2025 Referring Physician Meghna Reason for Consultation Atrial Fibrillation with RVR History of Present Illness This is an 89-year-old female with a PMH of paroxysmal atrial fibrillation on low-dose Eliquis, breast CA, HTN, HLD, TIA, HFpEF, mild aortic stenosis presents to the ED with c/o left groin/hip pain. Patient states she had a fall approximately 1 month ago though was mainly bed ridden did not go to the hospital or follow up with PCP though has been having increased pain. Patient states that she misstepped and fell using her walker, denies any lightheadedness, palpitations, shortness or breath, syncope. Upon presentation in the ED patient noted to have elevated heart rate, patient was in AFib with episode of RVR. Patient on metoprolol 25 mg p.o. twice daily. While on telemetry overnight patient noted to have episodes of tachy-víctor syndrome with heart rate and should not up to the 140s at times though having some SVR in the mid 50s with episodes of pauses with longest lasting around 2.5 seconds. Patient does endorse that she does get at times lightheaded though no episodes of syncope. Chest x-ray shows NAD. Patient was admitted to the hospital. I am asked to consult on this patient. Past Medical History Paroxysmal atrial fibrillation HTN HFpEF Breast CA TIA Mild Past Surgical History Denies previous cardiac surgeries Family History: Cardiovascular disease G8 MOTHER G8 FATHER FH: colon cancer G8 FATHER Allergies: Coded Allergies: NO KNOWN ALLERGIES (Unverified , 04/24/18) Home Meds Active Scripts Hydrocodone-Acetaminophen (Hydrocodone Bitartrate/AC 5-325 mg) 1 Tab Tab, 1 TAB PO Q6HP PRN for 5 Days, #20 TAB Prov:ROBERTO FOX [employer] 12/31/22 Reported Medications Trazodone Hcl (Trazodone Hcl) 100 Mg Tab, 50 MG PO QPM, TAB 12/25/22 Levothyroxine Sodium (Levothyroxine Sodium) 88 Mcg Tab, 88 MCG PO DAILY, TAB 12/25/22 Anastrozole (Anastrozole) 1 Mg Tab, 1 MG PO DAILY, TAB 12/25/22 Apixaban Base (ELIQUIS) 2.5 Mg Tab, 2.5 MG PO BID, TAB 12/25/22 Atorvastatin Calcium (Lipitor) 10 Mg Tab, 10 MG PO DAILY, TAB 12/25/22 Metoprolol Tartrate (Metoprolol Tartrate) 25 Mg Tab, 25 MG PO BID, TAB 12/25/22 Discontinued Reported Medications Triamterene & Hydrochlorothiaz (Maxzide) 1 Tab Tab, 1 TAB PO, TAB 12/25/22 Current Medications Current Medications Medications (Trade) Dose Ordered Sig/Christie Route PRN Reason Start Time Stop Time Status Last Admin Trazodone HCl (Desyrel) 50 mg HS PO 01/13/25 22:00 01/13/25 21:44 Patient Own Medication 1 mg HS PO 01/13/25 22:00 01/14/25 12:21 DC Amoxicillin/ Clavulanate Potassium (Augmentin Tablet) 875 mg Q8H PO 01/13/25 16:00 01/14/25 09:11 Naproxen (Naprosyn Tablet) 250 mg BID PO 01/13/25 22:00 01/14/25 09:13 Nitroglycerin (Ntrostat Sublingual) 0.4 mg Q5MINP PRN SL FOR CHEST PAIN 01/13/25 20:45 01/14/25 12:21 DC Morphine Sulfate 2 mg Q30M PRN IV FOR CHEST PAIN 01/13/25 20:45 01/14/25 12:20 DC Sodium Chloride (Saline Lock Ns) 10 ml Q8HR IV 01/13/25 22:00 01/14/25 05:56 Nitroglycerin (Ntrostat Sublingual) 0.4 mg Q5MINP PRN SL FOR CHEST PAIN 01/13/25 20:45 01/14/25 12:21 DC Morphine Sulfate 2 mg Q30M PRN IV FOR CHEST PAIN 01/13/25 20:45 01/14/25 12:21 DC Atorvastatin Calcium (Lipitor) 40 mg HS PO 01/15/25 22:00 Review of Systems Constitutional: No: Fever, Chills, Sweats, Weakness, Malaise, Other Eyes: No: Pain, Vision change, Conjunctivae inflammation, Eyelid inflammation, Other, Redness ENT: No: Ear pain, Ear discharge, Nose pain, Nose discharge, Nose congestion, Mouth pain, Mouth swelling, Throat pain, Throat swelling, Other Respiratory: No: Cough, Dry, Shortness of breath, SOB with exertion, Wheezing, Hemoptysis, Pleuritic Pain, Sputum, Wheezing, Other Cardiovascular: ; No: Chest Pain , Orthopnea, Paroxysmal Noc. Dyspnea, Edema, Lt Headedness, Other positive: Palpitations Gastrointestinal: No: Nausea, Vomiting, Abdominal Pain, Diarrhea, Constipation, Melena, Hematochezia, Other Genitourinary: No Dysuria, No Frequency, No Incontinence, No Hematuria, No Retention, No Other Musculoskeletal: neck pain; No: other, shoulder pain, arm pain, back pain, hand pain, , foot pain positive: Hip/ leg pain Skin: No: Rash, Lesions, Jaundice, Bruising, Other Neurological: Other ( headache.); No: Weakness, Numbness, Incoordination, Change in speech, Confusion, Seizures positive: Intermittent Dizziness, Vital Signs Vital Signs Date Time Temp Pulse Resp B/P (MAP) Pulse Ox O2 Delivery O2 Flow Rate FiO2 01/14/25 09:12 60 144/59 01/14/25 09:00 97.7 18 95 97.7 01/14/25 08:00 Room Air* 0 21 Physical Exam GENERAL: Alert and oriented x 3. No acute distress. EYES: PERRL, EOMI. Anicteric. HENT: Moist mucous membranes. LUNGS: Clear to auscultation bilaterally. CARDIOVASCULAR: Irregular rhythm/rate. ABDOMEN: Soft, nontender and nondistended. EXTREMITIES: No edema. NEUROLOGIC: No focal neurological deficits. SKIN: Warm, dry. Labs/Diagnostic Data Labs Test 01/14/25 05:47 01/13/25 09:56 Range/Units White Blood Count 7.4 # 4.4-10.8 10^3/uL Red Blood Count 4.38 4.0-5.20 10^6/uL Hemoglobin 13.2 12.2-16.2 g/dL Hematocrit 39.0 36.0-46.0 % Mean Corpuscular Volume 89.0 80.0-100.0 fL Mean Corpuscular Hemoglobin 30.0 28.0-32.0 pg Mean Corpuscular Hemoglobin Concent 33.7 32.0-36.0 g/dL Red Cell Distribution Width 15.8 H 11.8-14.3 % Platelet Count 195 140-450 10^3/uL Mean Platelet Volume 7.7 6.9-10.8 fL Neutrophils (%) (Auto) 66.6 37.0-80.0 % Lymphocytes (%) (Auto) 18.2 10.0-50.0 % Monocytes (%) (Auto) 9.6 0.0-12.0 % Eosinophils (%) (Auto) 5.2 0.0-7.0 % Basophils (%) (Auto) 0.4 0.0-2.0 % Neutrophils # (Auto) 4.9 1.6-8.6 10 ^3/uL Lymphocytes # (Auto) 1.4 0.4-5.4 10 ^3/uL Monocytes # (Auto) 0.7 0-1.3 10 ^3/uL Eosinophils # (Auto) 0.4 0-0.8 10 ^3/uL Basophils # (Auto) 0 0-0.2 10 ^3/uL Nucleated Red Blood Cells 0.1 % Sodium Level 142 136-145 mmol/L Potassium Level 3.7 3.5-5.1 mmol/L Chloride Level 108 H 98-107 mmol/L Carbon Dioxide Level 26 20-31 mmol/L Anion Gap 8 5-15 Blood Urea Nitrogen 17 9-23 mg/dL Creatinine 0.73 0.550-1.02 mg/dL Glomerular Filtration Rate Calc 79 >90 mL/min BUN/Creatinine Ratio 23.3 H 10.0-20.0 Serum Glucose 101 74-106 mg/dL Calcium Level 9.6 8.7-10.4 mg/dL Troponin I High Sensitivity 49 *H </=34 ng/L Hemoglobin A1c 5.4 <5.7 % A1C Total Bilirubin 0.8 0.2-1.0 mg/dL Aspartate Amino Transferase (AST) 16 13-40 U/L Alanine Aminotransferase (ALT) 10 7-40 U/L Alkaline Phosphatase 86 46-116 U/L Total Protein 6.4 5.7-8.2 g/dL Albumin 3.9 3.2-4.8 g/dL Thyroid Stimulating Hormone (TSH) 1.46 0.55-4.78 uIU/mL Assessment Paroxysmal atrial fibrillation with episode of RVR, SVR. Tachy-víctor syndrome. 2.5 sec pause. Chronic HFpEF. Mechanical fall. Left hip/groin pain. Breast cancer. Hypothyroidism. Mild . Moderate TR and MR. Plan/Recommendation I agree with your ongoing assessment and care of plan. Patient has been seen by Matthew Tony [employer] ART[employer] TECH[employer] on my behalf, him and I discussed the plan with the patient. Due to recurrent episodes of tachy-víctor syndrome with AFib RVR and bradycardia with 2.5 pause, recommend patient to have ppm implantation. We will plan for Wednesday as patient on with a.m. dose this morning given. Plan of care discussed with patient and is agreeable. Continue telemetry monitoring. Metoprolol 25 mg p.o. twice daily. Monitor and replace electrolytes, keep K> 4 and mg> 2. Additional plan as per the hospital course. Plan discussed with: Patient NYHA Physical activity limitations: Class2(Slight)fatigue,sob Date of Service: January 14, 2025 Billing Provider: BRIANNA MATHEWS MD Cardiology Common Codes: [id number] CARE 30-74 MIN BRIANNA MATHEWS MD January 14, 2025 14:35
[2025-01-15] VITALS (8 sets, daily range): BP systolic 128–192; BP diastolic 58–87; PULSE 69–166; RESP 16–18; TEMP 97.3–98.4; O2SAT 94–97
[2025-01-15 06:53] LABS: Anion Gap 10 (5-15); Carbon Dioxide 23 mmol/L (20-31); Potassium 3.9 mmol/L (3.5-5.1); Sodium 142 mmol/L (136-145)
[2025-01-15 06:55] LABS: Calcium 10.1 mg/dL (8.7-10.4)
[2025-01-15 06:59] LABS: BUN/Creatinine Ratio 20.5 (10.0-20.0); Blood Urea Nitrogen 16 mg/dL (9-23); Chloride 109 mmol/L (98-107); Glucose 96 mg/dL (74-106)
[2025-01-15 07:02] LABS: Basophils # (auto) 0 10 ^3/uL (0-0.2); Basophils % (auto) 0.4 % (0.0-2.0); Eosinophils # (auto) 0.5 10 ^3/uL (0-0.8); Eosinophils % (auto) 6.2 % (0.0-7.0); Hematocrit 37.8 % (36.0-46.0); Hemoglobin 12.8 g/dL (12.2-16.2); Lymphocytes # (auto) 1.2 10 ^3/uL (0.4-5.4); Mean Corpuscular Hemoglobin 30.5 pg (28.0-32.0); Mean Corpuscular Hgb Conc. 33.9 g/dL (32.0-36.0); Mean Corpuscular Volume 89.8 fL (80.0-100.0); Monocytes # (auto) 0.7 10 ^3/uL (0-1.3); Monocytes % (auto) 9.7 % (0.0-12.0); Neutrophils # (auto) 5.2 10 ^3/uL (1.6-8.6); Neutrophils % (auto) 67.7 % (37.0-80.0); Nucleated Red Blood Cells % 0.2 %; Platelet Count (auto) 177 10^3/uL (140-450); Red Blood Cells 4.21 10^6/uL (4.0-5.20); Red Cell Distribution Width 16.3 % (11.8-14.3); White Blood Cell 7.7 10^3/uL (4.4-10.8)
[2025-01-15 07:03] LABS: INR 1.12 (0.9-1.15); Partial Thromboplastin Time 29.4 SEC (24.5-34.5); Prothrombin Time 11.7 sec (9.3-11.8)
[2025-01-15 10:37] LABS: Folate (Folic Acid) 9.41 ng/mL (>5.38)
--- NOTE | 2025-01-15 17:17 | DVHPNRES ---
Progress Note Date Seen: January 15, 2025 Resident Creating Document: LUIZACARLY RESIDENT Medical Necessity Reason Pt with a Central, PICC or Fol: No Subjective Review of Systems Patient is 89 years old female with a past medical history of hypertension, left breast carcinoma on anastrozole, arthritis, skin carcinoma, hyperlipidemia, thyroid disease, TIA, CHF, atrial fibrillation on Eliquis came with a complaint of fall. As per patient she had a fall 1 month before but did not seek any medical attention. As per patient she had pain or 10/10 at the time but did not seek any medical attention. Patient walks with a walker. Patient reported she is feeling pain today in the left groin and radiating to the back, 7/10, increased with movement. Patient denied any dysuria, constipation or diarrhea, acute joint pain or swelling chest pain or shortness breast. Initial lab workup revealed sodium 146, potassium 3.1, CT abdominal pelvis-No acute displaced fractures. [id number] degenerative changes of the left hip with moderate to severe degenerative changes of the right hip. If symptoms persist, consider MRI for further evaluation.Mild Sigmoid diverticulitis. Partially imaged right renal cyst. Past Medical History hypertension, left breast carcinoma on anastrozole, arthritis, skin carcinoma, hyperlipidemia, thyroid disease, TIA, CHF, atrial fibrillation on Eliquis Past Surgical History Cataract surgery, hysterectomy Past Social History Lives with daughter, denies smoking/alcoholism or drug abuse Home meds Eliquis 2.5 mg b.i.d., metoprolol 25 mg b.i.d., trazodone 50 mg daily, anastrozole 1 mg daily, atorvastatin 10 mg q.h.s. 01/15/25 Patient seen and examined at bedside. Reports that the pain in the hip has improved permanent pacemaker placement scheduled for tomorrow No other acute complaints Objective vital signs Vital Sign Date Time Temp Pulse Resp B/P (MAP) Pulse Ox O2 Delivery O2 Flow Rate FiO2 01/15/25 13:00 97.3 88 17 141/82 (101) 97 97.3 01/14/25 20:00 Room Air* 0 21 Total Intake and Output 01/14/25 01/14/25 01/15/25 15:00 23:00 07:00 Intake Total 120 ml 1560 ml 300 ml Output Total 250 ml Balance 120 ml 1560 ml 50 ml medications Current Medications Medications Dose Ordered Sig/Christie Route Start Time Stop Time Status Last Admin Dose Admin Acetaminophen 650 mg Q6HP PRN PO 01/12/25 23:00 01/13/25 03:33 650 MG Morphine Sulfate 2 mg Q30M PRN IV 01/12/25 23:00 01/13/25 20:59 2 MG Acetaminophen/ Hydrocodone Bitart 1 tab Q6HPRN PRN PO 01/13/25 00:15 01/13/25 18:28 1 TAB Levothyroxine Sodium 88 mcg QAM PO 01/13/25 07:00 01/15/25 06:22 88 MCG Metoprolol Tartrate 25 mg BID PO 01/13/25 10:00 01/15/25 08:10 25 MG Trazodone HCl 50 mg HS PO 01/13/25 22:00 01/14/25 21:33 50 MG Pantoprazole Sodium 40 mg DAILY IV 01/13/25 10:00 01/15/25 08:09 40 MG Amoxicillin/ Clavulanate Potassium 875 mg Q8H PO 01/13/25 16:00 01/15/25 16:30 875 MG Naproxen 250 mg BID PO 01/13/25 22:00 01/15/25 08:09 250 MG Sodium Chloride 10 ml Q8HR IV 01/13/25 22:00 01/15/25 14:28 10 ML Atorvastatin Calcium 40 mg HS PO 01/15/25 22:00 Examination General Appearance: Cooperative. Well developed. Well nourished. NAD Head Exam: Normal inspection Neck Exam: Normal inspection. Non-tender. Normal alignment Pulmonary/Respiratory: Chest non-tender. Clear bilateral breath sounds Cardiovascular/Chest: Regular rate and rhythm. No murmurs. No JVD. Peripheral Pulses: 2+ Radial (R). 2+ Radial (L). 2+ Pedal (R). 2+ Pedal (L) Abdominal Exam: Normal bowel sounds. Soft. Nontender. No hepatospenomegaly. No masses Ankle Exam: Negative ankle edema Lower extremities: Negative lower extremity edema Neuro/Mental Status: A&O x4. Coherent Thoughts/Psych: Normal thought pattern. Appropriate mood and affect. Good judgement and insight Appearance: In no acute distress Skin Exam: Normal inspection. Normal color. Warm. 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 moderate tricuspid valve regurgitation. Pulmonary hypertension Plan / recommendation Hip x-ray: No acute findings in left hip Pelvic CT: No acute displaced fracture, [id number] of the left hip with moderate to severe degenerative changes of the right hip. If symptoms persist, consider MRI for further evaluation. Mild Sigmoid diverticulitis Partially imaged right renal cyst. -IV fluid D5W/NS 50 mL/hour -atrial fibrillation with a RVR, tachybrady syndrome- Eliquis held and patient continued on metoprolol b.i.d. cardiology consulted and the patient is planned for Permanent pacemaker implantation on Wednesday -levothyroxine: TSH within normal limits, levothyroxine 88 mcg p.o. daily -history of TIA: Atorvastatin 40 mg daily -pain management: NSAIDs, naproxen. -physical therapy -mild diverticulitis: Amoxicillin clavulanic acid 875 mg p.o. t.i.d.. - full liquid diet -PUD prophylaxis Protonix -DVT prophylaxis Eliquis held for procedure Goals of care discussed greater than 23 minutes with the patient, full code status Plan discussed with Dr. Rizvi Plan discussed with: Patient Date of Service: January 15, 2025 Billing Provider: PHAN RIZVI MD Common Visit Codes: [id number] INP/OBS CARE(HIGH) CARLY JARRETT RESIDENT January 15, 2025 17:17 PHAN RIZVI MD January 22, 2025 22:34
[2025-01-15] MEDS: ATORVASTATIN 20 MG TAB PO SCH (22:27)
--- NOTE | 2025-01-15 22:30 | DVHPN2 ---
Progress Note - Dictate Date Seen: January 15, 2025 Medical Necessity Reason Pt with a Central, PICC or Fol: No Subjective Patient was seen and evaluated in follow up. Patient is complaining of hip pain. The patient is scheduled for permanent pacemaker for tomorrow. Telemetry reviewed. vital signs Vital Sign Date Time Temp Pulse Resp B/P (MAP) Pulse Ox O2 Delivery O2 Flow Rate FiO2 01/15/25 21:00 98.0 94 18 130/67 (88) 97 98.0 01/15/25 08:00 Room Air* 0 21 Total Intake and Output 01/14/25 01/14/25 01/15/25 15:00 23:00 07:00 Intake Total 120 ml 1560 ml 300 ml Output Total 250 ml Balance 120 ml 1560 ml 50 ml medications Current Medications Medications Dose Ordered Sig/Christie Route Start Time Stop Time Status Last Admin Dose Admin Acetaminophen 650 mg Q6HP PRN PO 01/12/25 23:00 01/13/25 03:33 650 MG Acetaminophen/ Hydrocodone Bitart 1 tab Q6HPRN PRN PO 01/13/25 00:15 01/13/25 18:28 1 TAB Levothyroxine Sodium 88 mcg QAM PO 01/13/25 07:00 01/15/25 06:22 88 MCG Metoprolol Tartrate 25 mg BID PO 01/13/25 10:00 01/15/25 08:10 25 MG Trazodone HCl 50 mg HS PO 01/13/25 22:00 01/14/25 21:33 50 MG Pantoprazole Sodium 40 mg DAILY IV 01/13/25 10:00 01/15/25 08:09 40 MG Amoxicillin/ Clavulanate Potassium 875 mg Q8H PO 01/13/25 16:00 01/15/25 16:30 875 MG Naproxen 250 mg BID PO 01/13/25 22:00 01/15/25 08:09 250 MG Sodium Chloride 10 ml Q8HR IV 01/13/25 22:00 01/15/25 14:28 10 ML Atorvastatin Calcium 40 mg HS PO 01/15/25 22:00 objective GENERAL: Alert and oriented x 3. No acute distress. EYES: PERRL, EOMI. Anicteric. HENT: Moist mucous membranes. LUNGS: Clear to auscultation bilaterally. CARDIOVASCULAR: Irregular rhythm/rate. ABDOMEN: Soft, nontender and nondistended. EXTREMITIES: No edema. NEUROLOGIC: No focal neurological deficits. SKIN: Warm, dry. laboratory and microbiology Laboratory Tests 01/15/25 06:14 Test 01/15/25 06:14 Range/Units Serum Glucose 96 74-106 mg/dL Problem List Paroxysmal atrial fibrillation with episode of RVR, SVR. Tachy-víctor syndrome. 2.5 sec pause. Chronic HFpEF. Mechanical fall. Left hip/groin pain. Breast cancer. Hypothyroidism. Mild . Moderate TR and MR. Assessment/Plan Continued all current supportive medical care. [place] for pain. Antibiotics as ordered. Lipitor, Metoprolol GI prophylactics. Additional plan as per the hospital course. Plan discussed with: Patient BRIANNA MATHEWS MD January 15, 2025 22:30
[2025-01-16] VITALS (8 sets, daily range): BP systolic 140–166; BP diastolic 46–81; PULSE 59–98; RESP 16–18; TEMP 98–98.1; O2SAT 97–99
[2025-01-16] MEDS: LOSARTAN POTASSIUM 25 MG TAB PO ONE (12:50)
--- NOTE | 2025-01-16 19:59 | DVHPNRES ---
Progress Note Date Seen: January 16, 2025 Resident Creating Document: CARLY JARRETT RESIDENT Medical Necessity Reason Pt with a Central, PICC or Fol: No Subjective Review of Systems Patient is 89 years old female with a past medical history of hypertension, left breast carcinoma on anastrozole, arthritis, skin carcinoma, hyperlipidemia, thyroid disease, TIA, CHF, atrial fibrillation on Eliquis came with a complaint of fall. As per patient she had a fall 1 month before but did not seek any medical attention. As per patient she had pain or 10/10 at the time but did not seek any medical attention. Patient walks with a walker. Patient reported she is feeling pain today in the left groin and radiating to the back, 7/10, increased with movement. Patient denied any dysuria, constipation or diarrhea, acute joint pain or swelling chest pain or shortness breast. Initial lab workup revealed sodium 146, potassium 3.1, CT abdominal pelvis-No acute displaced fractures. [id number] degenerative changes of the left hip with moderate to severe degenerative changes of the right hip. If symptoms persist, consider MRI for further evaluation.Mild Sigmoid diverticulitis. Partially imaged right renal cyst. Past Medical History hypertension, left breast carcinoma on anastrozole, arthritis, skin carcinoma, hyperlipidemia, thyroid disease, TIA, CHF, atrial fibrillation on Eliquis Past Surgical History Cataract surgery, hysterectomy Past Social History Lives with daughter, denies smoking/alcoholism or drug abuse Home meds Eliquis 2.5 mg b.i.d., metoprolol 25 mg b.i.d., trazodone 50 mg daily, anastrozole 1 mg daily, atorvastatin 10 mg q.h.s. 01/15/25 Patient seen and examined at bedside. Reports that the pain in the hip has improved permanent pacemaker placement scheduled for tomorrow No other acute complaints Objective vital signs Vital Sign Date Time Temp Pulse Resp B/P (MAP) Pulse Ox O2 Delivery O2 Flow Rate FiO2 01/16/25 16:30 98.0 72 16 166/74 (104) 98 98.0 01/16/25 08:00 Room Air* 0 21 Total Intake and Output 01/15/25 01/15/25 01/16/25 15:00 23:00 07:00 Intake Total 360 ml 1080 ml 175 ml Balance 360 ml 1080 ml 175 ml medications Current Medications Medications Dose Ordered Sig/Christie Route Start Time Stop Time Status Last Admin Dose Admin Acetaminophen 650 mg Q6HP PRN PO 01/12/25 23:00 01/13/25 03:33 650 MG Acetaminophen/ Hydrocodone Bitart 1 tab Q6HPRN PRN PO 01/13/25 00:15 01/15/25 22:30 1 TAB Levothyroxine Sodium 88 mcg QAM PO 01/13/25 07:00 01/15/25 06:22 88 MCG Metoprolol Tartrate 25 mg BID PO 01/13/25 10:00 01/16/25 09:23 25 MG Trazodone HCl 50 mg HS PO 01/13/25 22:00 01/15/25 22:27 50 MG Pantoprazole Sodium 40 mg DAILY IV 01/13/25 10:00 01/16/25 09:23 40 MG Amoxicillin/ Clavulanate Potassium 875 mg Q8H PO 01/13/25 16:00 01/16/25 16:49 875 MG Naproxen 250 mg BID PO 01/13/25 22:00 01/15/25 22:30 250 MG Sodium Chloride 10 ml Q8HR IV 01/13/25 22:00 01/16/25 14:14 10 ML Atorvastatin Calcium 40 mg HS PO 01/15/25 22:00 01/15/25 22:27 40 MG Examination General Appearance: Cooperative. Well developed. Well nourished. NAD Head Exam: Normal inspection Neck Exam: Normal inspection. Non-tender. Normal alignment Pulmonary/Respiratory: Chest non-tender. Clear bilateral breath sounds Cardiovascular/Chest: Regular rate and rhythm. No murmurs. No JVD. Peripheral Pulses: 2+ Radial (R). 2+ Radial (L). 2+ Pedal (R). 2+ Pedal (L) Abdominal Exam: Normal bowel sounds. Soft. Nontender. No hepatospenomegaly. No masses Ankle Exam: Negative ankle edema Lower extremities: Negative lower extremity edema Neuro/Mental Status: A&O x4. Coherent Thoughts/Psych: Normal thought pattern. Appropriate mood and affect. Good judgement and insight Appearance: In no acute distress Skin Exam: Normal inspection. Normal color. Warm. 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 moderate tricuspid valve regurgitation. Pulmonary hypertension Plan / recommendation Hip x-ray: No acute findings in left hip Pelvic CT: No acute displaced fracture, [id number] of the left hip with moderate to severe degenerative changes of the right hip. If symptoms persist, consider MRI for further evaluation. Mild Sigmoid diverticulitis Partially imaged right renal cyst. -atrial fibrillation with a RVR, tachybrady syndrome- Eliquis held and patient continued on metoprolol b.i.d. cardiology consulted and the patient is planned for Permanent pacemaker implantation on Wednesday -levothyroxine: TSH within normal limits, levothyroxine 88 mcg p.o. daily -history of TIA: Atorvastatin 40 mg daily -physical therapy -mild diverticulitis: antibiotics given for 5 days full liquid diet -PUD prophylaxis Protonix -DVT prophylaxis Eliquis held for procedure Goals of care discussed greater than 23 minutes with the patient, full code status Plan discussed with Dr. Rizvi Plan discussed with: Patient Dietary Evaluation Review Comments: Weight mnagement, encourage PT and exercise for improved steability Expected Outcomes/Goals: Gradual weight loss. Date of Service: January 16, 2025 Billing Provider: PHAN RIZVI MD Common Visit Codes: [id number] INP/OBS CARE(HIGH) CARLY JARRETT RESIDENT January 16, 2025 19:59 PHAN RIZVI MD January 23, 2025 08:52
[2025-01-16] MEDS: amLODIPine BESYLATE 5 MG TAB PO ONE (20:59)
[2025-01-16] MEDS: LOSARTAN POTASSIUM 50 MG TAB PO ONE (20:59)
--- NOTE | 2025-01-16 22:39 | DVHPN2 ---
Progress Note - Dictate Date Seen: January 16, 2025 Medical Necessity Reason Pt with a Central, PICC or Fol: No Subjective Patient was seen and evaluated in follow up. No overnight events. Patient reports hip pain is slowly improvinh. Patient is planned for permanent pacemaker. Telemetry reviewed. vital signs Vital Sign Date Time Temp Pulse Resp B/P (MAP) Pulse Ox O2 Delivery O2 Flow Rate FiO2 01/16/25 21:27 87 149/47 01/16/25 21:00 98.1 17 98 98.1 01/16/25 08:00 Room Air* 0 21 Total Intake and Output 01/15/25 01/15/25 01/16/25 15:00 23:00 07:00 Intake Total 360 ml 1080 ml 175 ml Balance 360 ml 1080 ml 175 ml medications Current Medications Medications Dose Ordered Sig/Christie Route Start Time Stop Time Status Last Admin Dose Admin Acetaminophen 650 mg Q6HP PRN PO 01/12/25 23:00 01/13/25 03:33 650 MG Acetaminophen/ Hydrocodone Bitart 1 tab Q6HPRN PRN PO 01/13/25 00:15 01/15/25 22:30 1 TAB Levothyroxine Sodium 88 mcg QAM PO 01/13/25 07:00 01/15/25 06:22 88 MCG Metoprolol Tartrate 25 mg BID PO 01/13/25 10:00 01/16/25 21:27 25 MG Trazodone HCl 50 mg HS PO 01/13/25 22:00 01/16/25 21:25 50 MG Pantoprazole Sodium 40 mg DAILY IV 01/13/25 10:00 01/16/25 09:23 40 MG Sodium Chloride 10 ml Q8HR IV 01/13/25 22:00 01/16/25 21:25 10 ML Atorvastatin Calcium 40 mg HS PO 01/15/25 22:00 01/16/25 21:26 40 MG Losartan Potassium 50 mg DAILY PO 01/17/25 10:00 objective GENERAL: Alert and oriented x 3. No acute distress. EYES: PERRL, EOMI. Anicteric. HENT: Moist mucous membranes. LUNGS: Clear to auscultation bilaterally. CARDIOVASCULAR: Irregular rhythm/rate. ABDOMEN: Soft, nontender and nondistended. EXTREMITIES: No edema. NEUROLOGIC: No focal neurological deficits. SKIN: Warm, dry. laboratory and microbiology Laboratory Tests 01/15/25 06:14 Test 01/15/25 06:14 Range/Units Serum Glucose 96 74-106 mg/dL Problem List Paroxysmal atrial fibrillation with episode of RVR, SVR. Tachy-víctor syndrome. 2.5 sec pause. Chronic HFpEF. Mechanical fall. Left hip/groin pain. Breast cancer. Hypothyroidism. Mild . Moderate TR and MR. Assessment/Plan Continued all current supportive medical care. [place] for pain. Lipitor, Metoprolol. Losartan. GI prophylactics. Additional plan as per the hospital course. Dietary Evaluation Review Comments: Weight mnagement, encourage PT and exercise for improved steability Expected Outcomes/Goals: Gradual weight loss. Plan discussed with: Patient BRIANNA MATHEWS MD January 16, 2025 22:39
[2025-01-17] VITALS (13 sets, daily range): BP systolic 109–168; BP diastolic 57–94; PULSE 71–125; RESP 15–20; TEMP 97.2–98.6; O2SAT 95–99
[2025-01-17 06:53] LABS: Basophils # (auto) 0 10 ^3/uL (0-0.2); Basophils % (auto) 0.4 % (0.0-2.0); Eosinophils # (auto) 0.4 10 ^3/uL (0-0.8); Eosinophils % (auto) 4.8 % (0.0-7.0); Hematocrit 36.8 % (36.0-46.0); Hemoglobin 12.7 g/dL (12.2-16.2); Lymphocytes # (auto) 0.9 10 ^3/uL (0.4-5.4); Lymphocytes % (auto) 11.4 % (10.0-50.0); Mean Corpuscular Hemoglobin 30.8 pg (28.0-32.0); Mean Corpuscular Hgb Conc. 34.5 g/dL (32.0-36.0); Mean Corpuscular Volume 89.2 fL (80.0-100.0); Monocytes # (auto) 0.7 10 ^3/uL (0-1.3); Monocytes % (auto) 8.6 % (0.0-12.0); Neutrophils # (auto) 6.1 10 ^3/uL (1.6-8.6); Neutrophils % (auto) 74.8 % (37.0-80.0); Nucleated Red Blood Cells % 0.1 %; Platelet Count (auto) 180 10^3/uL (140-450); Red Blood Cells 4.12 10^6/uL (4.0-5.20); Red Cell Distribution Width 15.8 % (11.8-14.3); White Blood Cell 8.2 10^3/uL (4.4-10.8)
[2025-01-17 06:55] LABS: Anion Gap 9 (5-15); Calcium 9.4 mg/dL (8.7-10.4); Carbon Dioxide 26 mmol/L (20-31); Chloride 107 mmol/L (98-107); Potassium 3.9 mmol/L (3.5-5.1); Sodium 142 mmol/L (136-145)
[2025-01-17 07:01] LABS: BUN/Creatinine Ratio 19.7 (10.0-20.0); Blood Urea Nitrogen 15 mg/dL (9-23); Glucose 101 mg/dL (74-106)
[2025-01-17] MEDS: VANCOMYCIN 1GM/200ML PM 200 ML IV ONE (07:56)
[2025-01-17] MEDS: fentaNYL CITRATE 100 MCG/2 ML VL ONE (07:56)
[2025-01-17] MEDS: VANCOMYCIN HCL 1000 MG VL ONE ×2 (07:56→09:38)
[2025-01-17] MEDS: LIDOCAINE 2%HCL (LOCAL ANESTH.) INJ 20ML MDV ONE (07:56)
[2025-01-17] MEDS: MIDAZOLAM HCL 2MG/2ML 2ml VIAL (1mg/ml) ONE (07:56)
[2025-01-17] MEDS: IOHEXOL 350 MG/ML 100ML IJ ONE (08:23)
[2025-01-17] MEDS: SODIUM CHL 0.9% 50 ML ONE (08:23)
--- NOTE | 2025-01-17 08:30 | DVH ---
CHEST RADIOGRAPH Indication: Pain Technique: Single frontal view of the chest was obtained COMPARISON: None FINDINGS: Lines and Tubes: None Lungs: Clear Pleura: No effusion. No pneumothorax. Cardiomediastinal contours: Unremarkable Bones: Unremarkable IMPRESSION: No acute disease.
[2025-01-17] MEDS: LOSARTAN POTASSIUM 50 MG TAB PO SCH (10:00)
[2025-01-17] MEDS: ceFAZolin 1GM/50ML 50 ML IV SCH ×2 (10:30→15:54)
[2025-01-17] MEDS ORDERED: ACETAMINOPHEN 325 MG TAB PO PRN (10:30)
--- NOTE | 2025-01-17 11:03 | DVH ---
EXAM: XY CHEST PORTABLE Indication: S/P PACEMAKER Technique: Single frontal view of the chest was obtained Comparison: XY CHEST PORTABLE on DOS: 01/17/25 FINDINGS: Lines and Tubes: Cardiac pacemaker projects over left chest wall. Lungs: No focal consolidation. Pleura: No effusion. No pneumothorax. Cardiomediastinal contours: Mild cardiomegaly. Bones: No acute osseous abnormality. IMPRESSION: Cardiac pacemaker projects over left chest wall. No acute cardiopulmonary disease.
--- NOTE | 2025-01-17 15:27 | DVHOP ---
DATE OF SURGERY: 01/17/2025 TECHNIQUE PERFORMED: * Left subclavian venography. * Management of conscious sedation. * Insertion of needle under fluoroscopic guidance. * Obtain access in the left subclavian venous line. * Implantation of dual chamber permanent pacemaker from the left subclavian region (Biotronik device, MRI proof). * Fluoroscopic guidance and supervision. * Interrogation of the device. COMPLICATIONS: None. INSOLE PRESSER: Assisted by Jeanette Aguiar Jason, Evans and Jazmine. INDICATIONS: The patient has bradycardia, paroxysmal atrial fibrillation and the patient has sick sinus syndrome. She needs a permanent pacemaker for a proper management of the antiarrhythmic medicine in a standard manner. DESCRIPTION OF PROCEDURE: Risks and benefits all have been explained. The patient understands actually very well. Left subclavian venography was done and subsequently under aseptic precaution under local anesthesia left subclavian venous access had been obtained. Wire was passed, needle was removed. Incision was made 2 inches semi-horizontally. Subcutaneous pocket was made. Bleeding sites all have been cauterized. We also have put a venous sheath. Dilator was removed. Ventricular lead was passed. The atrial lead was passed. adjusted inferiorly and had been screwed in very well. Subsequently, we put another 6-[place] venous line. Atrial lead also had been sutured at [address]. Ventricular lead was then sutured at 3 [address]. Procedure was done under fluoroscopy and pulse generator was placed, screwed in very well and put under subcutaneous pocket. The whole subcutaneous pocket had been put under. Now, we have cleaned the whole area with antibiotic solution. Subsequently with the help of 2-0 Vicryl, followed by 3-0 Vicryl, followed by 3-0 Monocryl and followed by 4-0 Monocryl. The whole wound had been sutured and Dermabond, tincture of benzoin, Steri-Strip, Telfa Op-Site applied and the procedure went well. There were no complications. The patient did well. Now, we have following parameters available at this time. Date of implantation is 01/17 and the R wave is 10.1, voltage 0.4 milliseconds at 625 ohms. The right atrial lead 0.4 milliseconds at 525 ohms. Procedure went well. PLAN: I advised the patient to have the doxycycline for the next 2 weeks. Left thumb splint will be removed. I will remove the dressing in my office after 2 weeks. Bharathi Lion MD MP/SKYLA/DAVE TID: [id number] RECEIPT: [id number] MTDD
--- NOTE | 2025-01-17 15:43 | DVHPN2 ---
Progress Note - Dictate Date Seen: January 17, 2025 Medical Necessity Reason Pt with a Central, PICC or Fol: No Subjective Patient was seen and evaluated in follow up. Patient is complaining of hip pain. Patient underwent left subclavian venography, implantation of dual chamber permanent pacemaker from the left subclavian. I advised the patient to have the doxycycline for the next 2 weeks. Left thumb splint will be removed. I will remove the dressing in my office after 2 weeks. Chest x-ray shows cardiac pacemaker projects over left chest wall. No acute cardiopulmonary disease. Telemetry reviewed. vital signs Vital Sign Date Time Temp Pulse Resp B/P (MAP) Pulse Ox O2 Delivery O2 Flow Rate FiO2 01/17/25 12:25 83 18 99 Room Air* 0 21 01/17/25 11:41 117/59 (78) 01/17/25 10:15 98.6 98.6 Total Intake and Output 01/16/25 01/16/25 01/17/25 15:00 23:00 07:00 Intake Total 100 ml Balance 100 ml medications Current Medications Medications Dose Ordered Sig/Christie Route Start Time Stop Time Status Last Admin Dose Admin Acetaminophen 650 mg Q6HP PRN PO 01/12/25 23:00 01/13/25 03:33 650 MG Acetaminophen/ Hydrocodone Bitart 1 tab Q6HPRN PRN PO 01/13/25 00:15 01/15/25 22:30 1 TAB Levothyroxine Sodium 88 mcg QAM PO 01/13/25 07:00 01/15/25 06:22 88 MCG Metoprolol Tartrate 25 mg BID PO 01/13/25 10:00 01/16/25 21:27 25 MG Trazodone HCl 50 mg HS PO 01/13/25 22:00 01/16/25 21:25 50 MG Pantoprazole Sodium 40 mg DAILY IV 01/13/25 10:00 01/16/25 09:23 40 MG Sodium Chloride 10 ml Q8HR IV 01/13/25 22:00 01/17/25 06:03 10 ML Atorvastatin Calcium 40 mg HS PO 01/15/25 22:00 01/16/25 21:26 40 MG Losartan Potassium 50 mg DAILY PO 01/17/25 10:00 Cefazolin Sodium 50 ml @ 50 mls/hr Q8H IV 01/17/25 10:30 01/17/25 19:29 Vancomycin HCl 200 ml @ 200 mls/hr Q12HR IV 01/17/25 22:00 01/18/25 10:59 Acetaminophen/ Hydrocodone Bitart 1 tab Q4HP PRN PO 01/17/25 10:30 Acetaminophen 650 mg Q6HP PRN PO 01/17/25 10:30 objective GENERAL: Alert and oriented x 3. No acute distress. EYES: PERRL, EOMI. Anicteric. HENT: Moist mucous membranes. LUNGS: Clear to auscultation bilaterally. CARDIOVASCULAR: Irregular rhythm/rate. ABDOMEN: Soft, nontender and nondistended. EXTREMITIES: No edema. NEUROLOGIC: No focal neurological deficits. SKIN: Warm, dry. laboratory and microbiology Laboratory Tests 01/17/25 05:46 Test 01/17/25 05:46 Range/Units Serum Glucose 101 74-106 mg/dL Problem List Paroxysmal atrial fibrillation with episode of RVR, SVR. Tachy-víctor syndrome. 2.5 sec pause. Chronic HFpEF. Mechanical fall. Left hip/groin pain. Breast cancer. Hypothyroidism. Mild . Moderate TR and MR. Assessment/Plan Continued all current supportive medical care. [place] for pain. Lipitor, Metoprolol. IV antibiotics with Cefazolin. Losartan. GI prophylactics. Additional plan as per the hospital course. Dietary Evaluation Review Comments: Weight mnagement, encourage PT and exercise for improved steability Expected Outcomes/Goals: Gradual weight loss. Plan discussed with: Patient BRIANNA MATHEWS MD January 17, 2025 14:11
[2025-01-17] MEDS ORDERED: LOSARTAN POTASSIUM 25 MG TAB PO ONE (18:00)
[2025-01-17] MEDS: LOSARTAN POTASSIUM 50 MG TAB PO ONE (18:28)
[2025-01-17] MEDS: VANCOMYCIN 1GM/200ML PM 200 ML IV SCH (21:55)
--- NOTE | 2025-01-17 22:29 | DVHPNRES ---
Progress Note Date Seen: January 17, 2025 Resident Creating Document: LUIZAYAYAJACK RESIDENT Medical Necessity Reason Pt with a Central, PICC or Fol: No Subjective Review of Systems Patient is 89 years old female with a past medical history of hypertension, left breast carcinoma on anastrozole, arthritis, skin carcinoma, hyperlipidemia, thyroid disease, TIA, CHF, atrial fibrillation on Eliquis came with a complaint of fall. As per patient she had a fall 1 month before but did not seek any medical attention. As per patient she had pain or 10/10 at the time but did not seek any medical attention. Patient walks with a walker. Patient reported she is feeling pain today in the left groin and radiating to the back, 7/10, increased with movement. Patient denied any dysuria, constipation or diarrhea, acute joint pain or swelling chest pain or shortness breast. Initial lab workup revealed sodium 146, potassium 3.1, CT abdominal pelvis-No acute displaced fractures. [id number] degenerative changes of the left hip with moderate to severe degenerative changes of the right hip. If symptoms persist, consider MRI for further evaluation.Mild Sigmoid diverticulitis. Partially imaged right renal cyst. Past Medical History hypertension, left breast carcinoma on anastrozole, arthritis, skin carcinoma, hyperlipidemia, thyroid disease, TIA, CHF, atrial fibrillation on Eliquis Past Surgical History Cataract surgery, hysterectomy Past Social History Lives with daughter, denies smoking/alcoholism or drug abuse Home meds Eliquis 2.5 mg b.i.d., metoprolol 25 mg b.i.d., trazodone 50 mg daily, anastrozole 1 mg daily, atorvastatin 10 mg q.h.s. Review of systems Patient seen and examined at bedside. Status post pacemaker implantation, patient reports pain and tenderness at the site of implantation but does not have any fever or tachycardia No other complaints of abdominal pain, nausea or vomiting, shortness of breath Objective vital signs Vital Sign Date Time Temp Pulse Resp B/P (MAP) Pulse Ox O2 Delivery O2 Flow Rate FiO2 01/17/25 21:54 73 132/73 01/17/25 17:01 98.1 20 99 98.1 01/17/25 12:25 Room Air* 0 21 Total Intake and Output 01/16/25 01/16/25 01/17/25 15:00 23:00 07:00 Intake Total 100 ml Balance 100 ml medications Current Medications Medications Dose Ordered Sig/Christie Route Start Time Stop Time Status Last Admin Dose Admin Acetaminophen 650 mg Q6HP PRN PO 01/12/25 23:00 01/13/25 03:33 650 MG Acetaminophen/ Hydrocodone Bitart 1 tab Q6HPRN PRN PO 01/13/25 00:15 01/17/25 17:48 1 TAB Levothyroxine Sodium 88 mcg QAM PO 01/13/25 07:00 01/15/25 06:22 88 MCG Metoprolol Tartrate 25 mg BID PO 01/13/25 10:00 01/17/25 21:54 25 MG Trazodone HCl 50 mg HS PO 01/13/25 22:00 01/17/25 21:54 50 MG Pantoprazole Sodium 40 mg DAILY IV 01/13/25 10:00 01/16/25 09:23 40 MG Sodium Chloride 10 ml Q8HR IV 01/13/25 22:00 01/17/25 22:08 10 ML Atorvastatin Calcium 40 mg HS PO 01/15/25 22:00 01/17/25 21:53 40 MG Losartan Potassium 50 mg DAILY PO 01/17/25 10:00 Vancomycin HCl 200 ml @ 200 mls/hr Q12HR IV 01/17/25 22:00 01/18/25 10:59 01/17/25 21:55 200 MLS/HR Acetaminophen/ Hydrocodone Bitart 1 tab Q4HP PRN PO 01/17/25 10:30 Acetaminophen 650 mg Q6HP PRN PO 01/17/25 10:30 Cefazolin Sodium 50 ml @ 50 mls/hr Q8H IV 01/17/25 15:00 01/17/25 23:59 01/17/25 15:54 50 MLS/HR Examination General Appearance: Cooperative. Well developed. Well nourished. NAD Head Exam: Normal inspection Neck Exam: Normal inspection. Non-tender. Normal alignment Pulmonary/Respiratory: Chest non-tender. Clear bilateral breath sounds Cardiovascular/Chest: Regular rate and rhythm. No murmurs. No JVD. Peripheral Pulses: 2+ Radial (R). 2+ Radial (L). 2+ Pedal (R). 2+ Pedal (L) Abdominal Exam: Normal bowel sounds. Soft. Nontender. No hepatospenomegaly. No masses Ankle Exam: Negative ankle edema Lower extremities: Negative lower extremity edema Neuro/Mental Status: A&O x4. Coherent Thoughts/Psych: Normal thought pattern. Appropriate mood and affect. Good judgement and insight Appearance: In no acute distress Skin Exam: Normal inspection. Normal color. Warm. 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 moderate tricuspid valve regurgitation. Pulmonary hypertension Plan / recommendation Hip x-ray: No acute findings in left hip Pelvic CT: No acute displaced fracture, [id number] of the left hip with moderate to severe degenerative changes of the right hip. If symptoms persist, consider MRI for further evaluation. Mild Sigmoid diverticulitis Partially imaged right renal cyst. -atrial fibrillation with a RVR, tachybrady syndrome-status post permanent pacemaker implantation -levothyroxine: TSH within normal limits, levothyroxine 88 mcg p.o. daily -history of TIA: Atorvastatin 40 mg daily -physical therapy -mild diverticulitis: antibiotics given for 5 days full liquid diet -PUD prophylaxis Protonix -DVT prophylaxis Eliquis held for procedure Goals of care discussed greater than 23 minutes with the patient, full code status Plan discussed with Dr. Rizvi Plan discussed with: Patient, Other (RN (Abelardo)) Dietary Evaluation Review Comments: Weight mnagement, encourage PT and exercise for improved steability Expected Outcomes/Goals: Gradual weight loss. Date of Service: January 17, 2025 Billing Provider: PHAN RIZVI MD Common Visit Codes: [id number] INP/OBS CARE(HIGH) CARLY JARRETT RESIDENT January 17, 2025 22:29 PHAN RIZVI MD January 23, 2025 09:08
[2025-01-17] MEDS ORDERED: MORPHINE SULFATE INJ 2 MG/ml SYRG IV PRN (22:30)
[2025-01-18] VITALS (9 sets, daily range): BP systolic 134–171; BP diastolic 52–77; PULSE 70–110; RESP 16–20; TEMP 97.6–98.1; O2SAT 95–99
--- NOTE | 2025-01-18 06:26 | DVH ---
EXAM: XR Chest, 1 View CLINICAL INDICATION: CXR FOR PACEMAKER/ICD LEAD PLACEMENT TECHNIQUE: Frontal view of the chest. COMPARISON: XY CHEST PORTABLE on DOS: 01/17/25, XY CHEST PORTABLE on DOS: 01/17/25 FINDINGS: LUNGS AND PLEURAL SPACES: See below. HEART: Cardiomegaly with mild congestion. MEDIASTINUM: Unremarkable. Normal mediastinal contour. BONES/JOINTS: Unremarkable. No acute fracture. TUBES, LINES AND DEVICES: Left-sided cardiac pacemaker. OTHER FINDINGS: . . IMPRESSION: Cardiomegaly with mild congestion.
[2025-01-18 06:44] LABS: Basophils # (auto) 0 10 ^3/uL (0-0.2); Basophils % (auto) 0.3 % (0.0-2.0); Eosinophils # (auto) 0.3 10 ^3/uL (0-0.8); Eosinophils % (auto) 3.8 % (0.0-7.0); Hematocrit 37.3 % (36.0-46.0); Hemoglobin 12.7 g/dL (12.2-16.2); Lymphocytes # (auto) 0.9 10 ^3/uL (0.4-5.4); Lymphocytes % (auto) 11.9 % (10.0-50.0); Mean Corpuscular Hemoglobin 30.4 pg (28.0-32.0); Mean Corpuscular Volume 89.3 fL (80.0-100.0); Monocytes # (auto) 0.8 10 ^3/uL (0-1.3); Neutrophils # (auto) 5.7 10 ^3/uL (1.6-8.6); Nucleated Red Blood Cells % 0.1 %; Platelet Count (auto) 174 10^3/uL (140-450); Red Blood Cells 4.17 10^6/uL (4.0-5.20); Red Cell Distribution Width 16.1 % (11.8-14.3); White Blood Cell 7.7 10^3/uL (4.4-10.8)
[2025-01-18 07:00] LABS: Anion Gap 8 (5-15); Calcium 9.4 mg/dL (8.7-10.4); Carbon Dioxide 27 mmol/L (20-31); Chloride 106 mmol/L (98-107); Potassium 4.2 mmol/L (3.5-5.1); Sodium 141 mmol/L (136-145)
[2025-01-18 07:06] LABS: BUN/Creatinine Ratio 18.3 (10.0-20.0); Blood Urea Nitrogen 13 mg/dL (9-23); Glucose 98 mg/dL (74-106)
[2025-01-18] MEDS: CARVEDILOL 3.125 MG TAB PO SCH (10:00)
--- NOTE | 2025-01-18 10:06 | PEER ---
Peer to Peer Review Time DATE: 01/18/25 TIME: 10:05 Review and Recommendations: Spoke with Dr. Pitt approved for inpatient for Tachy [place] Syndrome due to SSS. KETAN ANDRADE MD January 18, 2025 10:06
--- NOTE | 2025-01-18 14:17 | DVHPN2 ---
Progress Note - Dictate Date Seen: January 18, 2025 Medical Necessity Reason Pt with a Central, PICC or Fol: No Subjective Patient was seen and evaluated in follow up. Patient complains of chest tenderness at the pacemaker site. Chemistry panel is WNL. Telemetry reviewed. vital signs Vital Sign Date Time Temp Pulse Resp B/P (MAP) Pulse Ox O2 Delivery O2 Flow Rate FiO2 01/18/25 09:16 174/68 01/18/25 09:15 74 01/18/25 08:23 97.7 16 96 97.7 01/18/25 08:00 Nasal Cannula* 2 28 Total Intake and Output 01/17/25 01/17/25 01/18/25 15:00 23:00 07:00 Intake Total 500 ml 550 ml Output Total 225 ml Balance -225 ml 500 ml 550 ml medications Current Medications Medications Dose Ordered Sig/Christie Route Start Time Stop Time Status Last Admin Dose Admin Acetaminophen 650 mg Q6HP PRN PO 01/12/25 23:00 01/13/25 03:33 650 MG Acetaminophen/ Hydrocodone Bitart 1 tab Q6HPRN PRN PO 01/13/25 00:15 01/17/25 17:48 1 TAB Levothyroxine Sodium 88 mcg QAM PO 01/13/25 07:00 01/18/25 06:01 88 MCG Trazodone HCl 50 mg HS PO 01/13/25 22:00 01/17/25 21:54 50 MG Pantoprazole Sodium 40 mg DAILY IV 01/13/25 10:00 01/18/25 09:14 40 MG Sodium Chloride 10 ml Q8HR IV 01/13/25 22:00 01/18/25 06:01 10 ML Atorvastatin Calcium 40 mg HS PO 01/15/25 22:00 01/17/25 21:53 40 MG Losartan Potassium 50 mg DAILY PO 01/17/25 10:00 01/18/25 09:16 50 MG Acetaminophen/ Hydrocodone Bitart 1 tab Q4HP PRN PO 01/17/25 10:30 Acetaminophen 650 mg Q6HP PRN PO 01/17/25 10:30 Morphine Sulfate 2 mg Q6HPRN PRN IV 01/17/25 22:30 Carvedilol 6.25 mg Q12HR PO 01/18/25 10:00 objective GENERAL: Alert and oriented x 3. No acute distress. EYES: PERRL, EOMI. Anicteric. HENT: Moist mucous membranes. LUNGS: Clear to auscultation bilaterally. CARDIOVASCULAR: Irregular rhythm/rate. ABDOMEN: Soft, nontender and nondistended. EXTREMITIES: No edema. NEUROLOGIC: No focal neurological deficits. SKIN: Warm, dry. laboratory and microbiology Laboratory Tests 01/18/25 06:11 Test 01/18/25 06:11 Range/Units Serum Glucose 98 74-106 mg/dL Problem List Paroxysmal atrial fibrillation with episode of RVR, SVR. Tachy-víctor syndrome. 2.5 sec pause. Chronic HFpEF. Mechanical fall. Left hip/groin pain. Breast cancer. Hypothyroidism. Mild . Moderate TR and MR. SSS. Assessment/Plan Continued all current supportive medical care. Morphine and [place] for pain management. Lipitor. Coreg, Losartan. GI prophylactics. Additional plan as per the hospital course. Dietary Evaluation Review Comments: Weight mnagement, encourage PT and exercise for improved steability Expected Outcomes/Goals: Gradual weight loss. Plan discussed with: Patient BRIANNA MATHEWS MD January 18, 2025 11:14
--- NOTE | 2025-01-18 18:42 | DVHPNRES ---
Progress Note Date Seen: January 18, 2025 Resident Creating Document: CARLY JARRETT RESIDENT Medical Necessity Reason Pt with a Central, PICC or Fol: No Subjective Review of Systems Review of systems Patient seen and examined at bedside. Status post pacemaker implantation, patient reports mild pain and tenderness at the site of implantation but does not have any fever No other complaints of abdominal pain, nausea or vomiting, shortness of breath patient able to get out of the bed and walk with a walker Objective vital signs Vital Sign Date Time Temp Pulse Resp B/P (MAP) Pulse Ox O2 Delivery O2 Flow Rate FiO2 01/18/25 17:00 97.9 80 20 141/77 (98) 95 97.9 01/18/25 08:00 Nasal Cannula* 2 28 Total Intake and Output 01/17/25 01/17/25 01/18/25 15:00 23:00 07:00 Intake Total 500 ml 550 ml Output Total 225 ml Balance -225 ml 500 ml 550 ml medications Current Medications Medications Dose Ordered Sig/Christie Route Start Time Stop Time Status Last Admin Dose Admin Acetaminophen 650 mg Q6HP PRN PO 01/12/25 23:00 01/13/25 03:33 650 MG Acetaminophen/ Hydrocodone Bitart 1 tab Q6HPRN PRN PO 01/13/25 00:15 01/17/25 17:48 1 TAB Levothyroxine Sodium 88 mcg QAM PO 01/13/25 07:00 01/18/25 06:01 88 MCG Trazodone HCl 50 mg HS PO 01/13/25 22:00 01/17/25 21:54 50 MG Pantoprazole Sodium 40 mg DAILY IV 01/13/25 10:00 01/18/25 09:14 40 MG Sodium Chloride 10 ml Q8HR IV 01/13/25 22:00 01/18/25 14:28 10 ML Atorvastatin Calcium 40 mg HS PO 01/15/25 22:00 01/17/25 21:53 40 MG Losartan Potassium 50 mg DAILY PO 01/17/25 10:00 01/18/25 09:16 50 MG Acetaminophen/ Hydrocodone Bitart 1 tab Q4HP PRN PO 01/17/25 10:30 Acetaminophen 650 mg Q6HP PRN PO 01/17/25 10:30 Morphine Sulfate 2 mg Q6HPRN PRN IV 01/17/25 22:30 Carvedilol 6.25 mg Q12HR PO 01/18/25 10:00 Examination General Appearance: Cooperative. Well developed. Well nourished. NAD Head Exam: Normal inspection Neck Exam: Normal inspection. Non-tender. Normal alignment Pulmonary/Respiratory: Chest non-tender. Clear bilateral breath sounds, left upper chest wound in a sterile dressing Cardiovascular/Chest: Regular rate and rhythm. No murmurs. No JVD. Peripheral Pulses: 2+ Radial (R). 2+ Radial (L). 2+ Pedal (R). 2+ Pedal (L) Abdominal Exam: Normal bowel sounds. Soft. Nontender. No hepatospenomegaly. No masses Ankle Exam: Negative ankle edema Lower extremities: Negative lower extremity edema Neuro/Mental Status: A&O x4. Coherent Thoughts/Psych: Normal thought pattern. Appropriate mood and affect. Good judgement and insight Appearance: In no acute distress Skin Exam: Normal inspection. Normal color. Warm. 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 moderate tricuspid valve regurgitation. Pulmonary hypertension Plan / recommendation Hip x-ray: No acute findings in left hip Pelvic CT: No acute displaced fracture, [id number] of the left hip with moderate to severe degenerative changes of the right hip. If symptoms persist, consider MRI for further evaluation. Mild Sigmoid diverticulitis Partially imaged right renal cyst. -atrial fibrillation with a RVR, tachybrady syndrome-status post permanent pacemaker implantation -levothyroxine: TSH within normal limits, levothyroxine 88 mcg p.o. daily -history of TIA: Atorvastatin 40 mg daily -physical therapy -mild diverticulitis: antibiotics given for 5 days full liquid diet -PUD prophylaxis Protonix -DVT prophylaxis Eliquis held for procedure Goals of care discussed greater than 27 minutes with the patient, full code status Plan discussed with Dr. Oswald Plan discussed with: Patient, Other (RN ( Korin )) My Orders My Orders Orders - CARLY JARRETT RESIDENT Procedure Category Date Status Time Morphine Sulfate PHA 01/17/25 In Process Injection 22:30 Initiate Vte ALISSA 01/18/25 In Process Prophylaxis 01:48 Carvedilol Tablet PHA 01/18/25 In Process (Coreg Tablet) 10:00 Dietary Evaluation Review Comments: Weight mnagement, encourage PT and exercise for improved steability Expected Outcomes/Goals: Gradual weight loss. Date of Service: January 18, 2025 Billing Provider: PHAN RIZVI MD Common Visit Codes: [id number] INP/OBS CARE(HIGH) CARLY JARRETT RESIDENT January 18, 2025 18:42 PHAN RIZVI MD January 23, 2025 09:16
[2025-01-18] MEDS: HYDROcodone-ACET 5/325MG TAB PO PRN (21:25)
[2025-01-18] MEDS: AMIODARONE BOLUS KIT 100 ML IV ONE (23:06)
[2025-01-18] MEDS: AMIODARONE 360mg/200mL PREMIX 200 ML IV ONE (23:19)
[2025-01-19] VITALS (7 sets, daily range): BP systolic 118–156; BP diastolic 53–68; PULSE 69–80; RESP 16–18; TEMP 97.3–98; O2SAT 93–96
[2025-01-19] MEDS: AMIODARONE 360mg/200mL PREMIX 200 ML IV SCH (05:30)
[2025-01-19 06:26] LABS: Calcium 9.4 mg/dL (8.7-10.4); Potassium 3.8 mmol/L (3.5-5.1); Sodium 140 mmol/L (136-145)
[2025-01-19 06:27] LABS: Anion Gap 11 (5-15); Carbon Dioxide 22 mmol/L (20-31)
[2025-01-19 06:32] LABS: BUN/Creatinine Ratio 18.8 (10.0-20.0); Blood Urea Nitrogen 13 mg/dL (9-23)
[2025-01-19 06:48] LABS: Chloride 107 mmol/L (98-107); Glucose 115 mg/dL (74-106)
[2025-01-19 06:51] LABS: Basophils # (auto) 0.1 10 ^3/uL (0-0.2); Basophils % (auto) 0.7 % (0.0-2.0); Eosinophils # (auto) 0.2 10 ^3/uL (0-0.8); Eosinophils % (auto) 3.2 % (0.0-7.0); Hematocrit 37.5 % (36.0-46.0); Hemoglobin 12.2 g/dL (12.2-16.2); Lymphocytes # (auto) 1.2 10 ^3/uL (0.4-5.4); Lymphocytes % (auto) 15.7 % (10.0-50.0); Mean Corpuscular Hemoglobin 30.4 pg (28.0-32.0); Mean Corpuscular Hgb Conc. 32.5 g/dL (32.0-36.0); Mean Corpuscular Volume 93.6 fL (80.0-100.0); Monocytes # (auto) 0.9 10 ^3/uL (0-1.3); Monocytes % (auto) 11.9 % (0.0-12.0); Neutrophils # (auto) 5.2 10 ^3/uL (1.6-8.6); Neutrophils % (auto) 68.5 % (37.0-80.0); Nucleated Red Blood Cells % 0.2 %; Platelet Count (auto) 150 10^3/uL (140-450); Red Cell Distribution Width 16.7 % (11.8-14.3); White Blood Cell 7.6 10^3/uL (4.4-10.8)
[2025-01-19] MEDS: APIXABAN 2.5 MG TAB PO SCH (09:10)
--- NOTE | 2025-01-19 10:42 | ECG ---
[facility] Test Date: 2025-01-17 Test Time: 10:57:24 Pat Name: DARA NEFF Department: Room: 0219T B Gender: F Dispatch Clerk: Galindo CASTELLANO RN : [id number] Requested By: BRIANNA MATHEWS Order Number: [id number] Reading MD: Jose Locke Measurements Intervals [place] Rate: 90 P: 0 WI: 0 QRS: -60 QRSD: 100 T: 140 QT: 348 QTc: 425 Interpretive Statements Demand pacemaker, interpretation is based on intrinsic rhythm Undetermined rhythm Left axis deviation Septal infarct , age undetermined Electronically Signed On 01-20-2025 20:50:32 PDT by Jose Locke Please click the below link to view image of tracing.
--- NOTE | 2025-01-19 12:32 | DVHPN2 ---
Progress Note - Dictate Date Seen: January 19, 2025 Medical Necessity Reason Pt with a Central, PICC or Fol: No Subjective Patient was seen and evaluated in follow up. Patient is complaining of mild pain and tenderness at the site of implantation. Patient is ambulating with walker. Denies SOB. BS are WNL. Telemetry reviewed. vital signs Vital Sign Date Time Temp Pulse Resp B/P (MAP) Pulse Ox O2 Delivery O2 Flow Rate FiO2 01/19/25 09:10 70 134/60 01/19/25 09:00 97.3 18 93 97.3 01/19/25 08:00 Room Air* 0 21 Total Intake and Output 01/18/25 01/18/25 01/19/25 15:00 23:00 07:00 Intake Total 580 ml 500 ml Output Total 1000 ml Balance -420 ml 500 ml medications Current Medications Medications Dose Ordered Sig/Christie Route Start Time Stop Time Status Last Admin Dose Admin Acetaminophen 650 mg Q6HP PRN PO 01/12/25 23:00 01/13/25 03:33 650 MG Acetaminophen/ Hydrocodone Bitart 1 tab Q6HPRN PRN PO 01/13/25 00:15 01/17/25 17:48 1 TAB Levothyroxine Sodium 88 mcg QAM PO 01/13/25 07:00 01/19/25 06:06 88 MCG Trazodone HCl 50 mg HS PO 01/13/25 22:00 01/18/25 21:24 50 MG Pantoprazole Sodium 40 mg DAILY IV 01/13/25 10:00 01/19/25 09:10 40 MG Sodium Chloride 10 ml Q8HR IV 01/13/25 22:00 01/19/25 05:33 10 ML Atorvastatin Calcium 40 mg HS PO 01/15/25 22:00 01/18/25 21:24 40 MG Losartan Potassium 50 mg DAILY PO 01/17/25 10:00 01/19/25 09:10 50 MG Acetaminophen/ Hydrocodone Bitart 1 tab Q4HP PRN PO 01/17/25 10:30 01/18/25 21:25 1 TAB Acetaminophen 650 mg Q6HP PRN PO 01/17/25 10:30 Morphine Sulfate 2 mg Q6HPRN PRN IV 01/17/25 22:30 Carvedilol 6.25 mg Q12HR PO 01/18/25 10:00 01/19/25 09:10 6.25 MG Apixaban 2.5 mg BID PO 01/19/25 10:00 01/19/25 09:10 2.5 MG objective GENERAL: Alert and oriented x 3. No acute distress. EYES: PERRL, EOMI. Anicteric. HENT: Moist mucous membranes. LUNGS: Clear to auscultation bilaterally. CARDIOVASCULAR: Irregular rhythm/rate. ABDOMEN: Soft, nontender and nondistended. EXTREMITIES: No edema. NEUROLOGIC: No focal neurological deficits. SKIN: Warm, dry. laboratory and microbiology Laboratory Tests 01/19/25 05:09 Test 01/19/25 05:09 Range/Units Serum Glucose 115 H 74-106 mg/dL Problem List Paroxysmal atrial fibrillation with episode of RVR, SVR. Tachy-víctor syndrome. 2.5 sec pause. Chronic HFpEF. Mechanical fall. Left hip/groin pain. Breast cancer. Hypothyroidism. Mild . Moderate TR and MR. SSS. Assessment/Plan Continued all current supportive medical care. Morphine and [place] for pain management. Lipitor. Coreg, Losartan. GI prophylactics. Additional plan as per the hospital course. Dietary Evaluation Review Comments: Weight mnagement, encourage PT and exercise for improved steability Expected Outcomes/Goals: Gradual weight loss. Plan discussed with: Patient BRIANNA MATHEWS MD January 19, 2025 11:50
[2025-01-19] MEDS ORDERED: LOSA-534 PO (17:23)
[2025-01-19] MEDS ORDERED: APIX2.5T PO (17:23)
[2025-01-19] MEDS ORDERED: ATOR10TA PO (17:23)
[2025-01-19] MEDS ORDERED: METO25TA5 PO (17:23)
--- NOTE | 2025-01-19 18:09 | DVHDSRES ---
Discharge Summary Date of Admission Resident Creating Document: CARLY JARRETT RESIDENT January 12, 2025 at 22:57 Date of Discharge: January 19, 2025 Admitting Diagnosis Status post fall, rule out acute fracture Left groin pain radiating to back, rule out UTI Hypokalemia Hyponatremia mild likely due to dehydration hypertension, hyperlipidemia, thyroid disease, TIA, CHF acute exacerbation atrial fibrillation on Eliquis left breast carcinoma on anastrozole, Degenerative change of the hip joint Right renal cyst Mild sigmoid diverticulitis arthritis, skin carcinoma, Wounds: left upper chest wound s/p pacemaker placement Labs/Diagnostic Data: Laboratory Results Test 01/19/25 05:09 01/15/25 06:14 01/14/25 05:47 01/13/25 09:56 White Blood Count 7.6 10^3/uL (4.4-10.8) Red Blood Count 4.00 10^6/uL (4.0-5.20) Hemoglobin 12.2 g/dL (12.2-16.2) Hematocrit 37.5 % (36.0-46.0) Mean Corpuscular Volume 93.6 fL (80.0-100.0) Mean Corpuscular Hemoglobin 30.4 pg (28.0-32.0) Mean Corpuscular Hemoglobin Concent 32.5 g/dL (32.0-36.0) Red Cell Distribution Width 16.7 % (11.8-14.3) Platelet Count 150 10^3/uL (140-450) Mean Platelet Volume 8.1 fL (6.9-10.8) Neutrophils (%) (Auto) 68.5 % (37.0-80.0) Lymphocytes (%) (Auto) 15.7 % (10.0-50.0) Monocytes (%) (Auto) 11.9 % (0.0-12.0) Eosinophils (%) (Auto) 3.2 % (0.0-7.0) Basophils (%) (Auto) 0.7 % (0.0-2.0) Neutrophils # (Auto) 5.2 10 ^3/uL (1.6-8.6) Lymphocytes # (Auto) 1.2 10 ^3/uL (0.4-5.4) Monocytes # (Auto) 0.9 10 ^3/uL (0-1.3) Eosinophils # (Auto) 0.2 10 ^3/uL (0-0.8) Basophils # (Auto) 0.1 10 ^3/uL (0-0.2) Nucleated Red Blood Cells 0.2 % Sodium Level 140 mmol/L (136-145) Potassium Level 3.8 mmol/L (3.5-5.1) Chloride Level 107 mmol/L (98-107) Carbon Dioxide Level 22 mmol/L (20-31) Anion Gap 11 (5-15) Blood Urea Nitrogen 13 mg/dL (9-23) Creatinine 0.69 mg/dL (0.550-1.02) Glomerular Filtration Rate Calc 83 mL/min (>90) BUN/Creatinine Ratio 18.8 (10.0-20.0) Serum Glucose 115 mg/dL (74-106) Calcium Level 9.4 mg/dL (8.7-10.4) Prothrombin Time 11.7 sec (9.3-11.8) Prothrombin Time INR 1.12 (0.9-1.15) Activated Partial Thromboplast Time 29.4 SEC (24.5-34.5) Troponin I High Sensitivity 49 ng/L (</=34) Hemoglobin A1c 5.4 % A1C (<5.7) Total Bilirubin 0.8 mg/dL (0.2-1.0) Aspartate Amino Transferase (AST) 16 U/L (13-40) Alanine Aminotransferase (ALT) 10 U/L (7-40) Alkaline Phosphatase 86 U/L (46-116) Total Protein 6.4 g/dL (5.7-8.2) Albumin 3.9 g/dL (3.2-4.8) Vitamin B12 Level 271 pg/mL (211-911) Vitamin D 25-Hydroxy 48.3 ng/mL (30.0-100) Folic Acid 9.41 ng/mL (>5.38) Thyroid Stimulating Hormone (TSH) 1.46 uIU/mL (0.55-4.78) Other Laboratory Tests 01/19/25 05:09 Brief Hx & Hospital Course: HPI Patient is 89 years old female with a past medical history of hypertension, left breast carcinoma on anastrozole, arthritis, skin carcinoma, hyperlipidemia, thyroid disease, TIA, CHF, atrial fibrillation on Eliquis came with a complaint of fall. As per patient she had a fall 1 month before but did not seek any medical attention. As per patient she had pain or 10/10 at the time but did not seek any medical attention. Patient walks with a walker. Patient reported she is feeling pain today in the left groin and radiating to the back, 7/10, increased with movement. Patient denied any dysuria, constipation or diarrhea, acute joint pain or swelling chest pain or shortness breast. Initial lab workup revealed sodium 146, potassium 3.1, CT abdominal pelvis-No acute displaced fractures. Kwqp-hz-wshaxyte degenerative changes of the left hip with moderate to severe degenerative changes of the right hip. If symptoms persist, consider MRI for further evaluation.Mild Sigmoid diverticulitis. Partially imaged right renal cyst. Past Medical History hypertension, left breast carcinoma on anastrozole, arthritis, skin carcinoma, hyperlipidemia, thyroid disease, TIA, CHF, atrial fibrillation on Eliquis Past Surgical History Cataract surgery, hysterectomy Past Social History Lives with daughter, denies smoking/alcoholism or drug abuse Home meds Eliquis 2.5 mg b.i.d., metoprolol 25 mg b.i.d., levofloxacin the 18 mg Q g daily, trazodone 50 mg daily, anastrozole 1 mg daily, atorvastatin 10 mg q.h.s. Hospital course Patient presented to the hospital with a chief complaint of a fall and pain in the left groin and back following which pelvic CT was done which did not show any acute displaced fractures, [id number] degenerative changes of the left hip with [id number] degenerative changes of the right hip. Hip x-ray showed no acute findings. Physical therapy evaluation was done and the patient was able to get out of the bed with the help of a walker. On 01/14/2025 patient was noted to have atrial fibrillation with a episode of RVR and on telemetry overnight patient was noted to have episodes of tachy-víctor syndrome with heart rate shooting up to 140s at times and then to mid 50s with the episodes of pauses longest lasting around 2.5 seconds. Cardiology were consulted and they recommended a permanent pacemaker implantation. Patient was on Eliquis which had to be held for 48 hours before patient could be taken to the labor supervisor for permanent pacemaker implantation. After adequate washout period, pacemaker was implanted. Patient had hypertension for which he was started on losartan and continued on metoprolol. Patient was evaluated by Physical therapy and she was able to walk with the help of a walker. Left upper arm was put in a sling and patient was advised to restrict movement of the left arm. Patient discharged in stable condition to home. Discharge plan Medications: Metoprolol 25 mg b.i.d., losartan 75 mg daily, atorvastatin, Eliquis 2.5 mg b.i.d., levothyroxine 88 mcg Follow up with the Cardiology in the outpatient clinic on the schedule appointment on 01/24/2025 for wound check, 02/05/2025 for pacemaker interrogation and 02/08/2025 for cardiology appointment with Dr. Locke. Advised to keep the left arm in the sling. Consults/Reason for consult Cardiology consultation for tachy-víctor syndrome Operations or Procedures DATE OF SURGERY: 01/17/2025 TECHNIQUE PERFORMED: * Left subclavian venography. * Management of conscious sedation. * Insertion of needle under fluoroscopic guidance. * Obtain access in the left subclavian venous line. * Implantation of dual chamber permanent pacemaker from the left subclavian region (Biotronik device, MRI proof). * Fluoroscopic guidance and supervision. * Interrogation of the device. COMPLICATIONS: None. AUTISM TUTOR: Assisted by Jeanette Aguiar Jason, Evans and Jazmine. INDICATIONS: The patient has bradycardia, paroxysmal atrial fibrillation and the patient has sick sinus syndrome. She needs a permanent pacemaker for a proper management of the antiarrhythmic medicine in a standard manner. DESCRIPTION OF PROCEDURE: Risks and benefits all have been explained. The patient understands actually very well. Left subclavian venography was done and subsequently under aseptic precaution under local anesthesia left subclavian venous access had been obtained. Wire was passed, needle was removed. Incision was made 2 inches semi-horizontally. Subcutaneous pocket was made. Bleeding sites all have been cauterized. We also have put a venous sheath. Dilator was removed. Ventricular lead was passed. The atrial lead was passed. adjusted inferiorly and had been screwed in very well. Subsequently, we put another 6-Vietnamese venous line. Atrial lead also had been sutured at [address]. Ventricular lead was then sutured at [address]. Procedure was done under fluoroscopy and pulse generator was placed, screwed in very well and put under subcutaneous pocket. The whole subcutaneous pocket had been put under. Now, we have cleaned the whole area with antibiotic solution. Subsequently with the help of 2-0 Vicryl, followed by 3-0 Vicryl, followed by 3-0 Monocryl and followed by 4-0 Monocryl. The whole wound had been sutured and Dermabond, tincture of benzoin, Steri-Strip, Telfa Op-Site applied and the procedure went well. There were no complications. The patient did well. Now, we have following parameters available at this time. Date of implantation is 01/17 and the R wave is 10.1, voltage 0.4 milliseconds at 625 ohms. The right atrial lead 0.4 milliseconds at 525 ohms. Procedure went well. PLAN: I advised the patient to have the doxycycline for the next 2 weeks. Left thumb splint will be removed. I will remove the dressing in my office after 2 weeks. 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 moderate tricuspid valve regurgitation. Pulmonary hypertension Discharge Disposition: Home Discharge Instruct/Medications Diet: Cardiac 2g Na,low cholest Activity: Light activity Activity comment: avoid lifting left arm and the sling on Follow Up/Referral: Follow up in the cardiology outpatient clinic as scheduled on 01/24/2025 for wound check and further appointments as scheduled with the Cardiology for pacemaker interrogation Medications: As per EMR Discharge Statement: "Patient was advised to return to the ER or call 911 if any headaches, dizziness, shortness of breath, chest pain, abdominal pain, bleeding, fevers, or worsening of medical condition. Patient was counseled about treatment plan, medications, possible side effects, patientverbalized understanding. All questions were answered to the best of my ability. 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 moderate tricuspid valve regurgitation. Pulmonary hypertension Date of Service: January 19, 2025 Billing Provider: PHAN RIZVI MD Common Visit Codes: 83707-RQT/OBS DISCH DAY >30min CARLY JARRETT RESIDENT January 19, 2025 18:09 PHAN RIZVI MD January 23, 2025 12:40
--- NOTE | 2025-01-23 09:02 | ECG ---
[facility] Test Date: 2025-01-17 Test Time: 10:58:49 Pat Name: DARA NEFF Department: Room: 0219T B Gender: F [employer] Log[employer] Manager: Galindo CASTELLANO RN : [id number] Requested By: CARLY JARRETT Order Number: [id number] Reading MD: Measurements Intervals [place] Rate: 90 P: 0 UT: 0 QRS: -58 QRSD: 108 T: 114 QT: 358 QTc: 437 Interpretive Statements Demand pacemaker, interpretation is based on intrinsic rhythm Atrial fibrillation with premature ventricular or aberrantly conducted complexes Left axis deviation Septal infarct , age undetermined Please click the below link to view image of tracing.
== END 2025-01-19 19:55 | disposition home or self-care (01) | DRG 243 ==
LOC: EDBD 16:30 → ER 16:30 → OVERFLOW 22:57 → CENTRAL 01-13 01:47 → TELE-CENTR 01-14 03:26
PROVIDERS: ADMIT Student in an Organized Health Care Education/Training Program; ATTEND Internal Medicine
PROC: 0JH606Z Insertion of Pacemaker, Dual Chamber into Chest Subcutaneous Tissue and Fascia, Open Approach (ICD-10-PCS; principal; 2025-01-17)
PROC: 02H63JZ Insertion of Pacemaker Lead into Right Atrium, Percutaneous Approach (ICD-10-PCS; 2025-01-17)
PROC: 02HK3JZ Insertion of Pacemaker Lead into Right Ventricle, Percutaneous Approach (ICD-10-PCS; 2025-01-17)
PROC: B517YZZ Fluoroscopy of Left Subclavian Vein using Other Contrast (ICD-10-PCS; 2025-01-17)
DX: I49.5 Sick sinus syndrome (principal); E87.1 Hypo-osmolality and hyponatremia; I50.32 Chronic diastolic (congestive) heart failure; K57.32 Diverticulitis of large intestine without perforation or abscess without bleeding; M16.11 Unilateral primary osteoarthritis, right hip; I48.0 Paroxysmal atrial fibrillation; E86.0 Dehydration; E87.6 Hypokalemia; C50.912 Malignant neoplasm of unspecified site of left female breast; E78.5 Hyperlipidemia, unspecified; I27.20 Pulmonary hypertension, unspecified; I34.0 Nonrheumatic mitral (valve) insufficiency; I07.1 Rheumatic tricuspid insufficiency; N28.1 Cyst of kidney, acquired; E03.9 Hypothyroidism, unspecified; I11.0 Hypertensive heart disease with heart failure; R29.6 Repeated falls; Z74.01 Bed confinement status; Z79.01 Long term (current) use of anticoagulants; Z79.811 Long term (current) use of aromatase inhibitors; Z79.899 Other long term (current) drug therapy; Z80.0 Family history of malignant neoplasm of digestive organs; Z82.49 Family history of ischemic heart disease and other diseases of the circulatory system; Z85.3 Personal history of malignant neoplasm of breast; Z85.828 Personal history of other malignant neoplasm of skin; Z86.73 Personal history of transient ischemic attack (TIA), and cerebral infarction without residual deficits; Z90.710 Acquired absence of both cervix and uterus; Z95.0 Presence of cardiac pacemaker
CPT/HCPCS: 33208; 36012; 36415; 71045; 72192; 73502; 80048; 80053; 82306; 82607; 82746; 83036; 84443; 84484; 85025; 85610; 85730; 93005; 96374; 96375; 97110; 97116; 97163; 97530; 99152; G0378; J2250; J2470

== ENCOUNTER 2025-02-22 11:44 | Outpatient (CLI) | payer OTHER ==
[~2025-02-22 11:44] MED LIST changes: +LOSA-534 PO; -TRIA75TA55 PO
[2025-02-22 12:30] LABS: Basophils # (auto) 0.1 10 ^3/uL (0-0.2); Basophils % (auto) 0.6 % (0.0-2.0); Eosinophils # (auto) 0.2 10 ^3/uL (0-0.8); Eosinophils % (auto) 2.3 % (0.0-7.0); Hematocrit 42.2 % (36.0-46.0); Hemoglobin 14.3 g/dL (12.2-16.2); Lymphocytes # (auto) 2.1 10 ^3/uL (0.4-5.4); Lymphocytes % (auto) 20.4 % (10.0-50.0); Mean Corpuscular Hemoglobin 30.4 pg (28.0-32.0); Mean Corpuscular Hgb Conc. 33.9 g/dL (32.0-36.0); Mean Corpuscular Volume 89.8 fL (80.0-100.0); Monocytes # (auto) 0.9 10 ^3/uL (0-1.3); Monocytes % (auto) 8.4 % (0.0-12.0); Neutrophils % (auto) 68.3 % (37.0-80.0); Nucleated Red Blood Cells % 0.1 %; Platelet Count (auto) 249 10^3/uL (140-450); Red Cell Distribution Width 16.5 % (11.8-14.3); White Blood Cell 10.2 10^3/uL (4.4-10.8)
[2025-02-22 13:04] LABS: Alanine Aminotransferase 14 U/L (7-40); Albumin 4.4 g/dL (3.2-4.8); Alkaline Phosphatase 89 U/L (46-116); Anion Gap 10 (5-15); Aspartate Aminotransferase 22 U/L (<34); BUN/Creatinine Ratio 21.1 (10.0-20.0); Blood Urea Nitrogen 20 mg/dL (9-23); Carbon Dioxide 23 mmol/L (20-31); Cholesterol 119 mg/dL (< 200); Glucose 106 mg/dL (74-106); LDL Cholesterol 43 mg/dL (< 100); Total Protein 7.2 g/dL (5.7-8.2); Triglycerides 78 mg/dL (< 150)
[2025-02-22 13:05] LABS: Bilirubin, Total 1.1 mg/dL (0.2-1.0); HDL Cholesterol 51 mg/dL (40-59)
[2025-02-22 13:07] LABS: Calcium 10.7 mg/dL (8.7-10.4); Chloride 112 mmol/L (98-107); Sodium 145 mmol/L (136-145)
[2025-02-22 13:08] LABS: Thyroid Stimulating Hormone 2.85 uIU/mL (0.55-4.78)
== END 2025-02-22 17:00 | disposition home or self-care (01) ==
LOC: LAB 11:44
PROVIDERS: ATTEND Internal Medicine
DX: C50.912 Malignant neoplasm of unspecified site of left female breast (principal); E78.5 Hyperlipidemia, unspecified; E03.9 Hypothyroidism, unspecified
CPT/HCPCS: 36415; 80053; 80061; 83615; 84443; 85025; 86300

== ENCOUNTER 2025-04-11 10:14 | Outpatient (CLI) | payer OTHER ==
[2025-04-11 11:43] LABS: Albumin 4.1 g/dL (3.2-4.8); Alkaline Phosphatase 87 U/L (46-116); Anion Gap 10 (5-15); BUN/Creatinine Ratio 16.7 (10.0-20.0); Blood Urea Nitrogen 15 mg/dL (9-23); Calcium 9.9 mg/dL (8.7-10.4); Carbon Dioxide 26 mmol/L (20-31); Chloride 106 mmol/L (98-107); Potassium 4.4 mmol/L (3.5-5.1); Sodium 142 mmol/L (136-145); Total Protein 7.3 g/dL (5.7-8.2)
[2025-04-11 11:44] LABS: Bilirubin, Total 0.8 mg/dL (0.2-1.0)
[2025-04-11 11:47] LABS: Alanine Aminotransferase < 9 U/L (7-40); Glucose 111 mg/dL (74-106)
== END 2025-04-11 17:00 | disposition home or self-care (01) ==
LOC: LAB 10:14
PROVIDERS: ATTEND Internal Medicine
DX: N18.31 Chronic kidney disease, stage 3a (principal)
CPT/HCPCS: 36415; 80053

== ENCOUNTER 2025-07-10 12:01 | Outpatient (CLI) | payer OTHER ==
[2025-07-10 12:42] LABS: Urine Protein, UAD Negative (Negative)
== END 2025-07-10 17:00 | disposition home or self-care (01) ==
LOC: LAB 12:01
PROVIDERS: ATTEND Internal Medicine
DX: C50.912 Malignant neoplasm of unspecified site of left female breast (principal); E03.9 Hypothyroidism, unspecified; E78.5 Hyperlipidemia, unspecified
CPT/HCPCS: 36415; 81001; 82310